=== PATIENT | female | born 1935 | race Caucasian/White ===

== ENCOUNTER → 2016-12-08 | Outpatient (CLI) | payer MEDICARE, BC ==
[2016-12-08 09:35] LABS: HEMATOCRIT 39.3 % (36.0-47.0); HEMOGLOBIN 13.2 g/dL (12.0-15.5); HGB HCT DIFFERENCE 0.3; MEAN CORPUSCULAR HEMOGLOBIN 29.6 pg (27.0-33.4); MEAN CORPUSCULAR HGB CONC 33.6 g/dL (32.0-36.0); MEAN CORPUSCULAR VOLUME 88 fl (80-97); RED BLOOD COUNT 4.47 10^6/uL (3.72-5.28); RED CELL DISTRIBUTION WIDTH 14.5 % (11.5-14.0); WHITE BLOOD COUNT 3.2 10^3/uL (4.0-10.5)
[2016-12-08 09:40] LABS: APPEARANCE,URINE SLIGHTLY-CLOUDY; BILIRUBIN,URINE NEGATIVE (NEGATIVE); GLUCOSE, URINE NEGATIVE (NEGATIVE); KETONES,URINE NEGATIVE (NEGATIVE); LEUKOCYTE ESTERASE,URINE LARGE (NEGATIVE); NITRITE,URINE POSITIVE (NEGATIVE); PROTEIN,URINE NEGATIVE (NEGATIVE); URINE SPECIFIC GRAVITY 1.017; UROBILINOGEN,URINE NEGATIVE mg/dL (<2.0)
[2016-12-08 10:04] LABS: ANION GAP 13 (5-19); BLOOD UREA NITROGEN 26 mg/dL (7-20); CALCIUM 9.5 mg/dL (8.4-10.2); CARBON DIOXIDE 24 mmol/L (22-30); CHLORIDE 107 mmol/L (98-107); CREATININE RESULT 0.97 mg/dL (0.52-1.25); GLUCOSE 107 mg/dL (75-110); POTASSIUM 4.1 mmol/L (3.6-5.0); SODIUM 144.1 mmol/L (137-145)
== END ==
LOC: OD 08:21
PROVIDERS: ATTEND Internal Medicine Nephrology
DX: E11.22 Type 2 diabetes mellitus with diabetic chronic kidney disease (principal); I12.9 Hypertensive chronic kidney disease with stage 1 through stage 4 chronic kidney disease, or unspecified chronic kidney disease; N18.2 Chronic kidney disease, stage 2 (mild)
CPT/HCPCS: 36415; 80048; 81001; 85027

== ENCOUNTER → 2017-05-16 | Outpatient (CLI) | payer MEDICARE, BC ==
--- NOTE | 2017-05-16 16:45 | RADIOLOGY REPORT (SQ) ---
EXAM DESCRIPTION: HAND RIGHT 3 VIEWS COMPLETED DATE/TIME: 05/16/2017 3:01 pm REASON FOR STUDY: CELLULITIS OF RIGHT UPPER LIMB L03.113 CELLULITIS OF RIGHT UPPER LIMB COMPARISON: None. EXAM PARAMETERS: NUMBER OF VIEWS: Three views. TECHNIQUE: AP, lateral and oblique radiographic images acquired of the right hand. LIMITATIONS: None. FINDINGS: MINERALIZATION: Osteopenia. BONES: No acute fracture or dislocation. No worrisome bone lesions. JOINTS: No effusions. SOFT TISSUES: No soft tissue swelling. No foreign body. OTHER: No other significant finding. IMPRESSION: NEGATIVE STUDY OF THE RIGHT HAND. NO RADIOGRAPHIC EVIDENCE OF ACUTE INJURY. TECHNICAL DOCUMENTATION: JOB ID: [id number] [employer]- All Rights Reserved
== END ==
LOC: OD 14:41
PROVIDERS: ATTEND Family Medicine
DX: L03.113 Cellulitis of right upper limb (principal)

== ENCOUNTER 2017-06-12 19:00 | Emergency (ER) | payer MEDICARE, BC ==
--- NOTE | 2017-06-12 19:41 | ER Document Report ---
ED Medical Screen (RME) - General Chief Complaint: Urinary Problem Stated Complaint: URINATING ISSUES Time Seen by Provider: 06/12/17 19:38 Mode of Arrival: Ambulatory Information source: Patient Notes: 82-year-old female presents with complaints of sudden blood either in her urine or from her vagina. Patient denies any pain at all denies any previous similar episodes I have greeted and performed a rapid initial assessment of this patient. A comprehensive ED assessment and evaluation of the patient, analysis of test results and completion of the medical decision making process will be conducted by additional ED providers. PHYSICAL EXAMINATION: GENERAL: Well-appearing, well-nourished and in no acute distress. HEAD: Atraumatic, normocephalic. EYES: Pupils equal round extraocular movements intact, conjunctiva are normal. ENT: Nares patent NECK: Normal range of motion LUNGS: No respiratory distress Musculoskeletal: Normal range of motion NEUROLOGICAL: Normal speech, normal gait. PSYCH: Normal mood, normal affect. SKIN: Warm, Dry, normal turgor, no rashes or lesions noted. TRAVEL OUTSIDE OF THE [place] IN LAST 30 DAYS: No - Related Data Allergies/Adverse Reactions: No Known Drug Allergies Allergy (Verified 06/12/17 19:02) Past Medical History - Past Medical History Cardiac Medical History: Reports: Hx Hypercholesterolemia, Hx Hypertension Denies: Hx Atrial Fibrillation, Hx Congestive Heart Failure, Hx Coronary Artery Disease, Hx Heart Attack, Hx Peripheral Vascular Disease, Hx Pulmonary Embolism, Hx Heart Murmur Pulmonary Medical History: Reports: Hx Asthma - as child, Hx Bronchitis Denies: Hx COPD, Hx Pneumonia, Hx Respiratory Failure, Hx Sleep Apnea, Hx Tuberculosis Neurological Medical History: Reports: Hx Cerebrovascular Accident - 2004,2007 approx.. Denies: Hx Seizures Endocrine Medical History: Reports: Hx Hypothyroidism. Denies: Hx Graves' Disease, Hx Hyperthyroidism Renal/ Medical History: Reports: Hx Kidney Stones - 1959's. Denies: Hx End Stage Renal Disease, Hx Peritoneal Dialysis Malignancy Medical History: Denies: Hx Lung Cancer GI Medical History: Denies: Hx Crohn's Disease, Hx Gastroesophageal Reflux Disease, Hx Hiatal Hernia, Hx Irritable Bowel, Hx Liver Failure, Hx Pancreatitis , Hx Ulcer Musculoskeltal Medical History: Reports Hx Arthritis, Denies Hx Fibromyalgia, Denies Hx Multiple Sclerosis, Denies Hx Muscular Dystrophy Psychiatric Medical History: Denies: Hx Dementia - some memory loss with age Traumatic Medical History: Reports: Hx Fractures - left wrist fracture 1996 Past Surgical History: Reports: Hx Tubal Ligation. Denies: Hx Appendectomy, Hx Bowel Surgery, Hx Section, Hx Cholecystectomy, Hx Colostomy, Hx Coronary Artery Bypass Graft, Hx Gastric Bypass Surgery, Hx Herniorrhaphy, Hx Hysterectomy, Hx Mastectomy, Hx Pacemaker, Hx Tonsillectomy - Immunizations Immunizations up to date: Yes Hx Diphtheria, Pertussis, Tetanus Vaccination: Yes Physical Exam - Vital signs Vitals: Temp Pulse Resp BP Pulse Ox 98.0 F 92 18 168/67 H 93 06/12/17 19:10 06/12/17 19:10 06/12/17 19:10 06/12/17 19:10 06/12/17 19:10 Course - Vital Signs Vital signs: Temp Pulse Resp BP Pulse Ox 98.0 F 92 18 168/67 H 93 06/12/17 19:10 06/12/17 19:10 06/12/17 19:10 06/12/17 19:10 06/12/17 19:10
[2017-06-12] MEDS ORDERED: NORMAL SALINE 1000 ML 1,000 ML IV PRN (20:09)
--- NOTE | 2017-06-12 20:11 | ER Document Report ---
ED GI/ - General Chief Complaint: Urinary Problem Stated Complaint: URINATING ISSUES Time Seen by Provider: 06/12/17 19:38 Mode of Arrival: Ambulatory Information source: Patient Notes: 82 years old pleasant female presents today with an episode of seeing blood after voiding. After voiding she wiped at that area and noted some blood but she is not sure what where it was coming from. She has no dysuria frequency urgency. Denies any abdominal pain denies any rectal bleed. Denies any malaise weakness. Denies any other constitutional symptoms. TRAVEL OUTSIDE OF THE [place] IN LAST 30 DAYS: No - Related Data Allergies/Adverse Reactions: No Known Drug Allergies Allergy (Verified 06/12/17 19:02) Past Medical History - General Information source: Patient - Social History Smoking Status: Never Smoker Frequency of alcohol use: None Drug Abuse: None Family History: Reviewed & Not Pertinent Patient has suicidal ideation: No Patient has homicidal ideation: No - Past Medical History Cardiac Medical History: Reports: Hx Hypercholesterolemia, Hx Hypertension Denies: Hx Atrial Fibrillation, Hx Congestive Heart Failure, Hx Coronary Artery Disease, Hx Heart Attack, Hx Peripheral Vascular Disease, Hx Pulmonary Embolism, Hx Heart Murmur Pulmonary Medical History: Reports: Hx Asthma - as child, Hx Bronchitis Denies: Hx COPD, Hx Pneumonia, Hx Respiratory Failure, Hx Sleep Apnea, Hx Tuberculosis Neurological Medical History: Reports: Hx Cerebrovascular Accident - 2004,2007 approx.. Denies: Hx Seizures Endocrine Medical History: Reports: Hx Hypothyroidism. Denies: Hx Graves' Disease, Hx Hyperthyroidism Renal/ Medical History: Reports: Hx Kidney Stones - 1959's. Denies: Hx End Stage Renal Disease, Hx Peritoneal Dialysis Malignancy Medical History: Denies: Hx Lung Cancer GI Medical History: Denies: Hx Crohn's Disease, Hx Gastroesophageal Reflux Disease, Hx Hiatal Hernia, Hx Irritable Bowel, Hx Liver Failure, Hx Pancreatitis , Hx Ulcer Musculoskeltal Medical History: Reports Hx Arthritis, Denies Hx Fibromyalgia, Denies Hx Multiple Sclerosis, Denies Hx Muscular Dystrophy Psychiatric Medical History: Denies: Hx Dementia - some memory loss with age Traumatic Medical History: Reports: Hx Fractures - left wrist fracture 1996 Past Surgical History: Reports: Hx Tubal Ligation. Denies: Hx Appendectomy, Hx Bowel Surgery, Hx Section, Hx Cholecystectomy, Hx Colostomy, Hx Coronary Artery Bypass Graft, Hx Gastric Bypass Surgery, Hx Herniorrhaphy, Hx Hysterectomy, Hx Mastectomy, Hx Pacemaker, Hx Tonsillectomy - Immunizations Immunizations up to date: Yes Hx Diphtheria, Pertussis, Tetanus Vaccination: Yes Hx Pneumococcal Vaccination: 02/07/14 Review of Systems - Review of Systems Notes: REVIEW OF SYSTEMS: CONSTITUTIONAL : Denies fever, chills, or sweats. Denies recent illness. EENT: Denies eye, ear, throat, or mouth pain or symptoms. Denies nasal or sinus congestion or discharge. Denies throat, tongue, or mouth swelling or difficulty swallowing. CARDIOVASCULAR: Denies chest pain. Denies palpitations or racing or irregular heart beat. Denies ankle edema. RESPIRATORY: Denies cough, cold, or chest congestion. Denies shortness of breath, difficulty breathing, or wheezing. GASTROINTESTINAL: Denies abdominal pain or distention. Denies nausea, vomiting , or diarrhea. Denies blood in vomitus, stools, or per rectum. Denies black, tarry stools. Denies constipation. GENITOURINARY: Denies difficulty urinating, painful urination, burning, frequency, blood in urine, or discharge. FEMALE GENITOURINARY: Denies vaginal bleeding, heavy or abnormal periods, irregular periods. Denies vaginal discharge or odor. MUSCULOSKELETAL: Denies back or neck pain or stiffness. Denies joint pain or swelling. SKIN: Denies rash, lesions or sores. HEMATOLOGIC : Denies easy bruising or bleeding. LYMPHATIC: Denies swollen, enlarged glands. NEUROLOGICAL: Denies confusion or altered mental status. Denies passing out or loss of consciousness. Denies dizziness or lightheadedness. Denies headache. Denies weakness or paralysis or loss of use of either side. Denies problems with gait or speech. Denies sensory loss, numbness, or tingling. Denies seizures. PSYCHIATRIC: Denies anxiety or stress. Denies depression, suicidal ideation, or homicidal ideation. ALL OTHER SYSTEMS REVIEWED AND NEGATIVE. PHYSICAL EXAMINATION: GENERAL: Well-appearing, well-nourished and in no acute distress. HEAD: Atraumatic, normocephalic. EYES: Pupils equal round and reactive to light, extraocular movements intact, conjunctiva are normal. ENT: Nares patent, oropharynx clear without exudates. Moist mucous membranes. NECK: Normal range of motion, supple without lymphadenopathy LUNGS: Breath sounds clear to auscultation bilaterally and equal. No wheezes rales or rhonchi. HEART: Regular rate and rhythm without murmurs ABDOMEN: Soft, nontender, nondistended abdomen. No guarding, no rebound. No masses appreciated. Female : deferred Musculoskeletal: Normal range of motion, no pitting or edema. No cyanosis. NEUROLOGICAL: Cranial nerves grossly intact. Normal speech, normal gait. Normal sensory, motor exams PSYCH: Normal mood, normal affect. SKIN: Warm, Dry, normal turgor, no rashes or lesions noted. Dictation was performed using [employer] voice recognition software Physical Exam - Vital signs Vitals: Temp Pulse Resp BP Pulse Ox 98.0 F 92 18 168/67 H 93 06/12/17 19:10 06/12/17 19:10 06/12/17 19:10 06/12/17 19:10 06/12/17 19:10 Course - Re-evaluation Re-evalutation: 06/12/17 22:25 Patient was informed of the results, and possible UTI. - Vital Signs Vital signs: Temp Pulse Resp BP Pulse Ox 98.0 F 92 18 168/67 H 93 06/12/17 19:10 06/12/17 19:10 06/12/17 19:10 06/12/17 19:10 06/12/17 19:10 - Laboratory Result Diagrams: 06/12/17 21:15 06/12/17 21:15 Laboratory results interpreted by me: 06/12/17 06/12/17 06/12/17 19:58 21:15 21:15 WBC 3.8 L RDW 14.3 H Plt Count 47 L Est GFR (Non-Af Amer) 51 L Urine Blood SMALL H Urine Urobilinogen 2.0 H Ur Leukocyte Esterase SMALL H - Diagnostic Test Radiology reviewed: Reports reviewed - CT reported by radiologist reviewed no significant finding Discharge - Discharge Clinical Impression: Hematuria Qualifiers: Hematuria type: gross Qualified Code(s): R31.0 - Gross hematuria UTI (urinary tract infection) Qualifiers: Urinary tract infection type: acute cystitis Hematuria presence: with hematuria Qualified Code(s): N30.01 - Acute cystitis with hematuria Condition: Fair Disposition: HOME, SELF-CARE Instructions: Urinary Tract Infection ([facility]), Trimethoprim-Sulfa ([facility]) Prescriptions: Sulfamethoxazole/Trimethoprim [Bactrim Ds Tablet] 1 each PO BID #10 tablet
--- NOTE | 2017-06-12 20:19 | RADIOLOGY REPORT (SQ) ---
EXAM DESCRIPTION: CT LTD RENAL STONE PROTOCOL ON COMPLETED DATE/TIME: 06/12/2017 8:08 pm REASON FOR STUDY: hematuria COMPARISON: 02/28/2012 and 09/06/2008. TECHNIQUE: CT scan of the abdomen and pelvis performed without intravenous or oral contrast. Images reviewed with lung, soft tissue, and bone windows. Reconstructed coronal and sagittal MPR images revi ewed. All images stored on PACS. All CT scanners at this facility use dose modulation, iterative reconstruction, and/or weight based d osing when appropriate to reduce radiation dose to as low as reasonably achievable (ALARA). [facility]: Dose Right [facility]: CareDose [facility]: Dose Right [facility]: Teradose 4D [facility]: Smart [employer] RADIATION DOSE: CT Rad equipment meets quality standard of care and radiation dose reduction techniq ues were employed. CTDIvol: 8.9 mGy. DLP: 479 mGy-cm.mGy. LIMITATIONS: None. FINDINGS: LOWER CHEST: No significant findings. No nodules or infiltrates. NON-CONTRASTED LIVER, SPLEEN, ADRENALS: Evaluation limited by lack of IV contrast. Stable splenomega ly, measuring 18 cm. No identified significant masses. PANCREAS: No masses. No peripancreatic inflammatory changes. GALLBLADDER: No identified stones by CT criteria. No inflammatory changes to suggest cholecystitis. RIGHT KIDNEY AND URETER: No suspicious masses. Assessment limited by lack of IV contrast. No signif icant calcifications. No hydronephrosis or hydroureter. LEFT KIDNEY AND URETER: No suspicious masses. Assessment limited by lack of IV contrast. No signifi cant calcifications. No hydronephrosis or hydroureter. AORTA AND RETROPERITONEUM: No aneurysm. No retroperitoneal masses or adenopathy. BOWEL AND PERITONEAL CAVITY: No obvious masses or inflammatory changes. No free fluid. APPENDIX: Not visualized. PELVIS, BLADDER, AND ABDOMINAL WALL:No abnormal masses. No free fluid. Bladder normal. BONES: Degenerative changes in the spine with marked scoliosis. Hardware in the right hip. Old righ t and left inferior pubic ramus fractures. OTHER: No other significant finding. IMPRESSION: STABLE SPLENOMEGALY, PRESENT ON PRIOR STUDIES WELL. 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 NO OTHER SIGNIFICANT OR ACUTE PROCESS IN THE ABDOMEN OR PELVIS. COMMENT: Quality ID # [id number]: Final reports with documentation of one or more dose reduction techniques (e.g., Automated exposure control, adjustment of the mA and/or kV according to patient size, use of iterative reconstruction technique) TECHNICAL DOCUMENTATION: JOB ID: [id number] [employer]- All Rights Reserved
[2017-06-12 20:22] LABS: APPEARANCE,URINE CLEAR; BILIRUBIN,URINE NEGATIVE (NEGATIVE); GLUCOSE, URINE NEGATIVE (NEGATIVE); KETONES,URINE NEGATIVE (NEGATIVE); LEUKOCYTE ESTERASE,URINE SMALL (NEGATIVE); NITRITE,URINE NEGATIVE (NEGATIVE); PROTEIN,URINE NEGATIVE (NEGATIVE); URINE SPECIFIC GRAVITY 1.014
[2017-06-12 21:39] LABS: ABSOLUTE EOSINOPHILS # (AUTO) 0.1 10^3/uL (0.0-0.6); ABSOLUTE LYMPHOCYTES (AUTO) 0.6 10^3/uL (0.5-4.7); ABSOLUTE MONOCYTES (AUTO) 0.2 10^3/uL (0.1-1.4); ABSOLUTE NEUT (AUTO) 2.9 10^3/uL (1.7-8.2); BASOPHILS % (AUTO) 0.7 % (0-2); EOSINOPHILS % (AUTO) 1.4 % (0-6); HEMATOCRIT 39.2 % (36.0-47.0); HEMOGLOBIN 13.4 g/dL (12.0-15.5); LYMPHOCYTES % (AUTO) 15.4 % (13-45); MEAN CORPUSCULAR HEMOGLOBIN 28.7 pg (27.0-33.4); MEAN CORPUSCULAR HGB CONC 34.2 g/dL (32.0-36.0); MEAN CORPUSCULAR VOLUME 84 fl (80-97); MONOCYTES % (AUTO) 4.7 % (3-13); RED BLOOD COUNT 4.68 10^6/uL (3.72-5.28); RED CELL DISTRIBUTION WIDTH 14.3 % (11.5-14.0); SEGMENTED NEUTROPHILS % (AUTO) 77.8 % (42-78); WHITE BLOOD COUNT 3.8 10^3/uL (4.0-10.5)
[2017-06-12 21:49] LABS: ALANINE AMINOTRANSFERASE 31 U/L (9-52); ALBUMIN 4.3 g/dL (3.5-5.0); ALKALINE PHOSPHATASE 71 U/L (38-126); ANION GAP 11 (5-19); ASPARTATE AMINO TRANSFERASE 32 U/L (14-36); BILIRUBIN,DIRECT 0.3 mg/dL (0.0-0.4); BILIRUBIN,TOTAL 0.7 mg/dL (0.2-1.3); BLOOD UREA NITROGEN 19 mg/dL (7-20); CALCIUM 9.8 mg/dL (8.4-10.2); CARBON DIOXIDE 28 mmol/L (22-30); CHLORIDE 105 mmol/L (98-107); CREATININE RESULT 1.03 mg/dL (0.52-1.25); GLUCOSE 110 mg/dL (75-110); POTASSIUM 3.6 mmol/L (3.6-5.0); TOTAL PROTEIN 6.8 g/dL (6.3-8.2)
[2017-06-12] MEDS ORDERED: SULFAMETHOXAZOLE/TRIMETHOPRIM 800-160 MG TABLET PO ONE (22:27)
[2017-06-12 22:47] VITALS: BP 151/71
== END 2017-06-12 22:47 | disposition home or self-care (01) ==
LOC: ER 19:00
DX: N30.01 Acute cystitis with hematuria (principal); R31.0 Gross hematuria; R39.198 Other difficulties with micturition
CPT/HCPCS: 99283; 96360; 36415; 85025; 80053; 81001; 76380; A9270; J7030

== ENCOUNTER 2017-08-23 05:46 | Day surgery (SDC) | payer MEDICARE, BC ==
[2017-08-11 10:36] LABS: HEMATOCRIT 38.2 % (36.0-47.0); HEMOGLOBIN 13.1 g/dL (12.0-15.5); INTERNATIONAL RATION (INR) 1.07; MEAN CORPUSCULAR HGB CONC 34.3 g/dL (32.0-36.0); MEAN CORPUSCULAR VOLUME 85 fl (80-97); PROTHROMBIN TIME 14.6 SEC (11.4-15.4); RED BLOOD COUNT 4.51 10^6/uL (3.72-5.28); RED CELL DISTRIBUTION WIDTH 14.9 % (11.5-14.0); WHITE BLOOD COUNT 3.4 10^3/uL (4.0-10.5)
[2017-08-11 10:37] LABS: PARTIAL THROMBOPLASTIN TIME 38.3 SEC (23.5-35.8)
[2017-08-11 11:02] LABS: ANION GAP 12 (5-19); BLOOD UREA NITROGEN 23 mg/dL (7-20); CALCIUM 9.7 mg/dL (8.4-10.2); CARBON DIOXIDE 26 mmol/L (22-30); CHLORIDE 106 mmol/L (98-107); GLUCOSE 112 mg/dL (75-110); SODIUM 144.4 mmol/L (137-145)
[2017-08-11 11:22] LABS: PLATELET COUNT 49 10^3/uL (150-450)
--- NOTE | 2017-08-11 13:24 | EKG REPORT ---
SEVERITY:- NORMAL ECG - SINUS RHYTHM : Confirmed by: Derrek Bailey MD 11-Aug-2017 13:22:40
[~2017-08-23 05:46] MED LIST: CEFAZOLIN 1 GM/D5W RTU 1 GM/50 ML RTUPB IV SCH; LACTATED RINGERS 1000 ML IV PRN; LIDOCAINE 0.5% INJ-PF (5 MG/ML) 50 ML SDV SUBCUT PRN
[2017-08-23] MEDS ORDERED: POVIDONE-IODINE 5% OPH PREP SOLN 30 ML ONE (06:13)
[2017-08-23] MEDS ORDERED: SODIUM BICARBONATE 8.4% INJ 50 MEQ/50 ML DISP.SYRIN ONE (06:14)
[2017-08-23] MEDS ORDERED: LIDOCAINE 1%/EPINEPHRINE INJ 20 ML VIAL ONE (06:14)
[2017-08-23] MEDS ORDERED: LIDOCAINE 2% INJ-PF (20 MG/ML) 10 ML AMPUL ONE (07:16)
[2017-08-23] MEDS ORDERED: FENTANYL CITRATE INJ/PF 100 MCG/2 ML AMPUL ONE (07:16)
[2017-08-23] MEDS ORDERED: MIDAZOLAM 2 MG/2 ML INJ ONE (07:17)
[2017-08-23] MEDS ORDERED: PROPOFOL INJ 200 MG/20 ML VIAL IV ONE (07:17)
[2017-08-23] MEDS ORDERED: DIPHENHYDRAMINE HCL 50 MG/ML VIAL IV PRN (08:29)
[2017-08-23] MEDS ORDERED: PROMETHAZINE HCL INJ 25 MG/1 ML VIAL IV PRN (08:29)
[2017-08-23] MEDS ORDERED: ONDANSETRON HCL INJ/PF 4 MG/2 ML SDV IV PRN (08:29)
[2017-08-23] MEDS ORDERED: FENTANYL CITRATE INJ/PF 100 MCG/2 ML AMPUL IV PRN ×3 (08:29)
--- NOTE | 2017-08-23 10:33 | Operative Report ---
Operative Report DATE OF SURGERY: 08/23/17 PREOPERATIVE DIAGNOSIS: Suspected basal cell carcinoma of the right ala of the nose POSTOPERATIVE DIAGNOSIS: Basal cell carcinoma of the right ala of the nose OPERATION: Excision of basal cell carcinoma of the right ala of nose with frozen section margin control and reconstruction with a full-thickness graft taken from the right clavicular area SURGEON: MOUNIKA CALHOUN ANESTHESIA: LMAC TISSUE REMOVED OR ALTERED: Basal cell carcinoma COMPLICATIONS: None ESTIMATED BLOOD LOSS: Minimal PROCEDURE: The patient was brought into the operating room. The patient was laid on the operating room table in a supine position. The patient was prepped and draped in a sterile and aseptic fashion. After a timeout we then went ahead and marked the area right ala of the nose to be resected. The 12:00 margin was towards the tip of the nose. The 3:00 margin was towards the upper lip. The 6:00 margin was towards the alar base. The 9:00 margin was towards the medial canthus. Then went ahead and anesthetize the area with 1% lidocaine with epinephrine. Then went ahead and excise the area. Stitch was placed at 12:00 and it was sent for frozen section. Frozen section results came back that the deep and lateral margins were clear. We irrigated the wound with Betadine sterile water to lyse any remaining cancer cells. We then went ahead and decided that because of the size of the defect we will proceed with a skin graft. This was the best option for this patient otherwise a nasolabial fold flap would be needed and this would distort the nose even more. This was a rather large basal cell carcinoma which did extend past the groove of the ala along the base of the ala and we had to split the rim of the ala and nostril sill in order to resect this and had a clear margin. Decided to harvest the graft from the right clavicular area. We then went ahead and harvest the full-thickness graft. We closed the area with 4-0 Vicryl sutures and the skin was then closed with 4- 0 PDS with knots being tied on the outside and a support stitch in the center. At the end of the case tincture of benzoin and Steri-Strips were applied with a light pressure dressing. Graft was then defatted to the appropriate size and placed into the area of defect. It was then sutured into place with 5-0 Prolene sutures leaving one end long. After all the sutures were placed we then went ahead and applied Xeroform. Then went ahead and created a bolus dressing and tied each suture 180 from each other. Then tied the sutures again to each other. Bacitracin was applied. 2 x 2's were applied and tincture benzoin and the dressing was taped into place. At the end of the case the patient was doing well and brought to the [facility] for recovery The approximate size of the lesion was 1.4 cm approximately. This dictation was performed using [employer] naturally speaking. If there are any inconsistencies please contact the dictating surgeon. Subjective: No complaints Objective: Vital signs stable afebrile No bleeding Dressing intact Assessment and plan: Doing well. Elevate the operative site. Resume medications. Take antibiotics for 1 day Follow-up Full instructions were given to the patient and family and they understand Portions of this note may be dictated using [employer] voice recognition software. Occasional variations and spelling and vocabulary could be possible and are unintentional. Additionally, there is a chance that some errors may not be caught or corrected. Please notify the offer of any discrepancies noted or if any statements are unclear.
--- NOTE | 2017-08-23 10:37 | Operative Report ---
Operative Report DATE OF SURGERY: 08/23/17 PREOPERATIVE DIAGNOSIS: Suspected basal cell carcinoma of the right ala of the nose POSTOPERATIVE DIAGNOSIS: Basal cell carcinoma of the right ala of the nose OPERATION: Excision of basal cell carcinoma of the right ala of nose with frozen section margin control and reconstruction with a full-thickness graft taken from the right clavicular area SURGEON: MOUNIKA CALHOUN ANESTHESIA: LMAC TISSUE REMOVED OR ALTERED: Basal cell carcinoma ESTIMATED BLOOD LOSS: Minimal
--- NOTE | 2017-08-23 10:44 | Discharge Summary ---
Discharge Summary (SDC) - Discharge Final Diagnosis: Basal cell carcinoma of the right alar Date of Surgery: 08/23/17 Condition: Good Treatment or Instructions: Antibiotics for 1 day, then discontinue. Elevate operative area to decrease swelling. Do not strain, or lift heavy objects. Call for excessive bleeding, increased temperature of 101, uncontrolled pain, or excessive nausea or vomiting. You may reach Dr. Mendez through his office at [phone]. In the event of an emergency after hours, then contact Dr. Mendez through [facility]. Return to the office for a postop check on . The time will be scheduled by the nursing staff of [facility] prior to discharge. Please give the patient a copy of their labs and EKG so they can bring this to their PMD. Thank you Portions of this note may be dictated using [employer] voice recognition software. Occasional variations and spelling and vocabulary could be possible and are unintentional. Additionally, there is a chance that some errors may not be caught or corrected. Please notify the offer of any discrepancies noted or if any statements are unclear. Referrals: ZITA SYED MD [Primary Care Provider] - Discharge Diet: As Tolerated Report the Following to Your Physician Immediately: Unusual Bleeding - Keep head elevated. No bending or straining. Do not touch the nose. Sneeze through the mouth. Keep nasal dressing stable.
[2017-08-23 12:17] VITALS: BP 150/66
== END 2017-08-23 12:18 | disposition home or self-care (01) ==
LOC: OROUT 05:46
PROVIDERS: ATTEND Plastic Surgery
PROC: 0HR1X73 Replacement of Face Skin with Autologous Tissue Substitute, Full Thickness, External Approach (ICD-10-PCS; principal; 2017-08-23 08:00)
DX: C44.391 Other specified malignant neoplasm of skin of nose (principal); E11.9 Type 2 diabetes mellitus without complications; M19.90 Unspecified osteoarthritis, unspecified site; J45.909 Unspecified asthma, uncomplicated; Z79.899 Other long term (current) drug therapy; Z79.84 Long term (current) use of oral hypoglycemic drugs; Z79.51 Long term (current) use of inhaled steroids; Z79.891 Long term (current) use of opiate analgesic; Z86.73 Personal history of transient ischemic attack (TIA), and cerebral infarction without residual deficits
CPT/HCPCS: 93005; 36415 ×2; 82962; 84132; 85027; 85610; 85730; 80048; 88305 ×2; 88331 ×2; 93010; 11642; 15260; J2250; J0690; J3010; J3490 ×4; J2704; 300

== ENCOUNTER → 2017-10-10 | Outpatient (CLI) | payer MEDICARE, BC ==
--- NOTE | 2017-10-10 16:37 | RADIOLOGY REPORT (SQ) ---
EXAM DESCRIPTION: HIPS BILATERAL COMPLETED DATE/TIME: 10/10/2017 3:17 pm REASON FOR STUDY: PAIN IN UNSPECIFIED HIP M25.559 PAIN IN UNSPECIFIED HIP M54.9 DORSALGIA, UNSPECI FIED COMPARISON: None. NUMBER OF VIEWS: Two views TECHNIQUE: AP pelvis and additional frog-leg view of both hips. LIMITATIONS: None. FINDINGS: Bones are osteopenic. There is a healed fracture of the right femoral neck status post ro d and hip compression screw fixation. There osteoarthritic changes in both hips, more advanced on th e right. SI joints are normal. IMPRESSION: Osteoarthritis. TECHNICAL DOCUMENTATION: JOB ID: [id number] [employer]- All Rights Reserved Reading location - IP/workstation name: [email or web address]
--- NOTE | 2017-10-10 16:39 | RADIOLOGY REPORT (SQ) ---
EXAM DESCRIPTION: LUMBAR SPINE COMPLETE COMPLETED DATE/TIME: 10/10/2017 3:17 pm REASON FOR STUDY: DORSALGIA, UNSPECIFIED M25.559 PAIN IN UNSPECIFIED HIP M54.9 DORSALGIA, UNSPECIF IED COMPARISON: None. NUMBER OF VIEWS: Five views including obliques. TECHNIQUE: AP, lateral, oblique, and sacral radiographic images acquired of the lumbar spine. LIMITATIONS: Osteopenia. FINDINGS: Bones are osteopenic. Mild height loss at several levels. No obvious acute compression f racture. There is a moderate -severe convex right scoliosis the level of L2-3. Multilevel spondylos is with vacuum disc at L2-3 and L3-4. IMPRESSION: Spondylosis, scoliosis and facet arthropathy. Osteopenia without obvious acute compress ion fracture. TECHNICAL DOCUMENTATION: JOB ID: [id number] [employer]- All Rights Reserved Reading location - IP/workstation name: [email or web address]
== END ==
LOC: OD 14:43
PROVIDERS: ATTEND Family Medicine
DX: M54.9 Dorsalgia, unspecified (principal); M47.896 Other spondylosis, lumbar region; M41.86 Other forms of scoliosis, lumbar region; M25.552 Pain in left hip; M25.551 Pain in right hip; M16.0 Bilateral primary osteoarthritis of hip
CPT/HCPCS: 72110; 73522

== ENCOUNTER → 2017-11-11 | Outpatient (CLI) | payer MEDICARE, BC ==
--- NOTE | 2017-11-11 11:18 | RADIOLOGY REPORT (SQ) ---
EXAM DESCRIPTION: CT HEAD WITHOUT COMPLETED DATE/TIME: 11/11/2017 10:36 am REASON FOR STUDY: WEAKNESS (R53.1) R53.1 WEAKNESS COMPARISON: 02/05/2014 TECHNIQUE: Axial images acquired through the brain without intravenous contrast. Images reviewed wi th bone, brain and subdural windows. Additional sagittal and coronal reconstructions were generated. Images stored on PACS. All CT scanners at this facility use dose modulation, iterative reconstruction, and/or weight based d osing when appropriate to reduce radiation dose to as low as reasonably achievable (ALARA). [facility]: Dose Right [facility]: CareDose [facility]: Dose Right [facility]: Teradose 4D [facility]: Smart [employer] ([employer]) RADIATION DOSE: CT Rad equipment meets quality standard of care and radiation dose reduction techniq ues were employed. CTDIvol: 48.5 mGy. DLP: 855 mGy-cm. mGy. LIMITATIONS: None. FINDINGS: VENTRICLES: Prominent ventricles secondary to involutional atrophy. CEREBRUM: Cortical atrophy. No masses. No hemorrhage. No midline shift. No evidence for acute in farction. Few scattered small areas of low density in the white matter most likely chronic small vess el ischemic changes. CEREBELLUM: No masses. No hemorrhage. No alteration of density. No evidence for acute infarction. EXTRAAXIAL SPACES: No fluid collections. No masses. ORBITS AND GLOBE: No intra- or extraconal masses. Normal contour of globe without masses. CALVARIUM: No fracture. PARANASAL SINUSES: No fluid or mucosal thickening. SOFT TISSUES: No mass or hematoma. OTHER: No other significant finding. IMPRESSION: CHRONIC MICROVASCULAR ISCHEMIA. NO ACUTE IMAGING FINDINGS IN THE BRAIN. EVIDENCE OF ACUTE STROKE: NO. COMMENT: Quality ID # [id number]: Final reports with documentation of one or more dose reduction techniques (e.g., Automated exposure control, adjustment of the mA and/or kV according to patient size, use of iterative reconstruction technique) TECHNICAL DOCUMENTATION: JOB ID: [id number] [employer]- All Rights Reserved Reading location - IP/workstation name: [email or web address]
== END ==
LOC: RAD 10:19
PROVIDERS: ATTEND Family Medicine
DX: I67.82 Cerebral ischemia (principal); R53.1 Weakness
CPT/HCPCS: 70450

== ENCOUNTER 2017-11-24 18:43 | Emergency (ER) | payer MEDICARE, BC ==
[2017-11-24] MEDS ORDERED: ACETAMINOPHEN 325 MG TABLET PO ONE (19:04)
--- NOTE | 2017-11-24 19:13 | ER Document Report ---
HPI - HPI Pain Level: 2 Notes: Patient is an 82-year-old female with a history of type 2 diabetes, dementia, and asthma who presents to the ED via EMS complaining of left-sided chest/rib pain status post fall prior to arrival. Patient states that she was getting something out of her lower covered cabinet when she stumbled backwards, landing on her buttocks. Patient states that the objects in her hand did fall on top of her, but were items that could be held in your hands. Patient states that 1 of the objects might have hit her on the top of the head, but she has not had any swelling nor any headache/pain. EMS stated her to a sitting position in a chair. Patient has been ambulatory since then without any difficulties. Spouse states that she is at baseline with her mentation and speech as well as her behavior. Throughout the day, the patient will have normal changes with her memory with not knowing where she is at. Patient states that she feels well aside from the left rib pain. She has been eating and drinking earlier without any difficulties. She has been having normal urinations and bowel movements as well. She is not on any blood thinners. No other concerns or complaints at this time. Denies any headache, fever, notable head injury, neck pain, changes in vision/speech/mentation/hearing, URI, sore throat, palpitations , syncope, cough, shortness of breath, wheeze, dyspnea, abdominal pain, nausea/ vomiting/diarrhea, urinary retention, dysuria, hematuria, back pain, loss of control of bowel or bladder, numbness/tingling, saddle anesthesia, muscle paralysis/weakness, or rash. - ROS Systems Reviewed and Negative: Yes All other systems reviewed and negative - REPRODUCTIVE Reproductive: DENIES: : Past Medical History - Social History Smoking Status: Never Smoker Family History: Reviewed & Not Pertinent - Past Medical History Cardiac Medical History: Reports: Hx Hypercholesterolemia, Hx Hypertension Denies: Hx Atrial Fibrillation, Hx Congestive Heart Failure, Hx Coronary Artery Disease, Hx Heart Attack, Hx Peripheral Vascular Disease, Hx Pulmonary Embolism, Hx Heart Murmur Pulmonary Medical History: Reports: Hx Asthma Denies: Hx Bronchitis, Hx COPD, Hx Pneumonia, Hx Respiratory Failure, Hx Sleep Apnea, Hx Tuberculosis Neurological Medical History: Denies: Hx Cerebrovascular Accident, Hx Seizures Endocrine Medical History: Reports: Hx Hypothyroidism. Denies: Hx Graves' Disease, Hx Hyperthyroidism Renal/ Medical History: Reports: Hx Kidney Stones - 1960's. Denies: Hx End Stage Renal Disease, Hx Peritoneal Dialysis Malignancy Medical History: Denies: Hx Lung Cancer GI Medical History: Denies: Hx Crohn's Disease, Hx Gastroesophageal Reflux Disease, Hx Hiatal Hernia, Hx Irritable Bowel, Hx Liver Failure, Hx Pancreatitis , Hx Ulcer Musculoskeltal Medical History: Reports Hx Arthritis, Denies Hx Fibromyalgia, Denies Hx Multiple Sclerosis, Denies Hx Muscular Dystrophy Psychiatric Medical History: Denies: Hx Dementia - some memory loss with age Traumatic Medical History: Reports: Hx Fractures - left wrist fracture 1996 Past Surgical History: Reports: Hx Tubal Ligation. Denies: Hx Appendectomy, Hx Bowel Surgery, Hx Section, Hx Cholecystectomy, Hx Colostomy, Hx Coronary Artery Bypass Graft, Hx Gastric Bypass Surgery, Hx Herniorrhaphy, Hx Hysterectomy, Hx Mastectomy, Hx Pacemaker, Hx Tonsillectomy - Immunizations Immunizations up to date: Yes Hx Diphtheria, Pertussis, Tetanus Vaccination: Yes - UNSURE WHEN Hx Pneumococcal Vaccination: 06/20/14 Vertical Provider Document - CONSTITUTIONAL Agree With Documented VS: Yes Notes: PHYSICAL EXAMINATION: accompanied by female nurse GENERAL: Well-appearing, well-nourished and in no acute distress. A&Ox4. Answers questions appropriately. HEAD: Atraumatic, normocephalic. Non-tender. No martins sign. no hematoma or bogginess. EYES: Pupils equal round and reactive to light, extraocular movements intact, sclera anicteric, conjunctiva are normal. No raccoon eyes/entrapment. No nystagmus. Vis chacon intact. ENT: EAC clear b/l. TM's intact b/l without erythema, fluid, or perforation. Nares patent and without discharge. oropharynx clear without exudates. No tonsilar hypertrophy or erythema. Moist mucous membranes. No sinus tenderness. No hemotympanum/CSF discharge. NECK: Normal range of motion, supple without lymphadenopathy. No rigidity. No midline tenderness. NEXUS negative. Chest: no ecchymosis. No flail chest. equal rise/fall. + tenderness to the left anteroinferior rib to palpation. LUNGS: Breath sounds clear to auscultation bilaterally and equal. No wheezes rales or rhonchi. HEART: Regular rate and rhythm without murmurs, rubs, gallops. ABDOMEN: Soft, nontender, nondistended abdomen. No guarding, no rebound. No masses appreciated. Normal bowel sounds present. No CVA tenderness bilaterally. No ecchymosis. Musculoskeletal: Ext b/l: FROM to passive/active. Strength 5+/5. No deficits noted. No bony tenderness of extremities. Back: FROM to passive/active. Strength 5+/5. No vertebral point tenderness, stepoffs, or deformities. No other bony tenderness or ecchymosis. Extremities: No cyanosis, clubbing, or edema b/l. Peripheral pulses 2+. Capillary refill less than 2 seconds. NEUROLOGICAL: NIH 0. GCS 15. Cranial nerves grossly intact. Normal speech, normal gait. Normal sensory, motor exams. Reflexes 2+ b/l. DIDIER's negative. Pronator drift negative. Heel/bill, finger/nose wnl. Rhomberg negative. PSYCH: Normal mood, normal affect. SKIN: Warm, Dry, normal turgor, no rashes or lesions noted. - INFECTION CONTROL TRAVEL OUTSIDE OF THE [place] IN LAST 30 DAYS: No Course - Re-evaluation Re-evalutation: 11/24/17 19:58 Patient is an afebrile, well-hydrated, 82-year-old female who presents to the ED with a left lower anterior chest wall/rib pain, suspect contusion. Vitals are acceptable. PE is otherwise unremarkable for any focal neurological deficits. X-ray of the chest and left ribs were unremarkable for any acute pathology. Patient has no significant tachycardia, tachypnea, or hypoxia. Patient states that overall her symptoms are improving. She is nontoxic- appearing. NIH 0, GCS 15, cranial nerves grossly intact, Nexus criteria negative, CT head Indonesian criteria negative. Patient is tolerating p.o. without difficulties. I did give her Tylenol p.o. No other labs or imaging warranted at this time based on H&P. Low suspicion for any acute intracranial hemorrhage, pneumothorax, dissection, respiratory compromise, severe dehydration , sepsis, meningitis, fractures, or other systemic emergent condition at this time. Patient and spouse are aware that her condition can change from initial presentation and she needs to monitor symptoms closely and seek medical attention for any acute changes. Recommend conservative measures for symptoms. Recheck with your PCM in 3-5 days or prn otherwise. Return to the ED with any worsening/concerning symptoms otherwise as reviewed in discharge. Patient is in agreement. - Vital Signs Vital signs: Temp Pulse Resp BP Pulse Ox 98.0 F 76 18 143/63 H 99 11/24/17 18:45 11/24/17 18:45 11/24/17 18:45 11/24/17 18:45 11/24/17 18:45 Discharge - Discharge Clinical Impression: Rib pain on left side Condition: Stable Disposition: HOME, SELF-CARE Instructions: Chest Wall Pain ([facility]), Rib Contusion ([facility]) Additional Instructions: Rest, Ice, Compression, Elevation Tylenol/ibuprofen as needed Light stretches daily Strength exercises as able Moist heat and massage may help F/u with your PCP in 3-5 days for a recheck Return to the ED with any worsening symptoms and/or development of fever, headache, changes in behavior/mentation/vision/speech, chest pain, palpitations , syncope, shortness of breath, trouble breathing, abdominal pain, n/v/d, blood in stool/urine, loss of control of bowel/bladder, urinary retention, muscle weakness/paralysis, saddle anesthesia, numbness/tingling, or other worsening symptoms that are concerning to you. Forms: Elevated Blood Pressure Referrals: ZITA SYED MD [Primary Care Provider] - Follow up in 3-5 days
--- NOTE | 2017-11-24 19:50 | RADIOLOGY REPORT (SQ) ---
EXAM DESCRIPTION: RIBS LEFT W/PA CHEST COMPLETED DATE/TIME: 11/24/2017 7:43 pm REASON FOR STUDY: pain s/p fall COMPARISON: 04/09/2015 TECHNIQUE: Frontal view of the chest and additional views of the left ribs acquired. NUMBER OF VIEWS: Three view. LIMITATIONS: None. FINDINGS: FRONTAL CXR: No pneumothorax. No pleural effusion. No atelectasis or infiltrates. RIBS: No displaced rib fractures. No lytic or blastic bony lesions. OTHER: No other significant finding. IMPRESSION: NO PNEUMOTHORAX. NO DISPLACED RIB FRACTURES. COMMENT: SITE OF TRAUMA/COMPLAINT MARKED/STAMP COMPLETED: NO. TECHNICAL DOCUMENTATION: JOB ID: [id number] [email or web address] All Rights Reserved Reading location - IP/workstation name: [email or web address]
[2017-11-24 20:48] VITALS: BP 125/48
== END 2017-11-24 20:44 | disposition home or self-care (01) ==
LOC: ER 18:43
DX: R07.81 Pleurodynia (principal); W19.XXXA Unspecified fall, initial encounter; F03.90 Unspecified dementia, unspecified severity, without behavioral disturbance, psychotic disturbance, mood disturbance, and anxiety; E11.9 Type 2 diabetes mellitus without complications; J45.909 Unspecified asthma, uncomplicated; I10 Essential (primary) hypertension
CPT/HCPCS: 99284; 71101; A9270

== ENCOUNTER 2018-07-05 19:04 | Emergency (ER) | payer MEDICARE, BC ==
--- NOTE | 2018-07-05 20:43 | ER Document Report ---
ED General - General Chief Complaint: Fall Injury Stated Complaint: SHOULDER PAIN Time Seen by Provider: 07/05/18 20:14 Notes: Patient is a 83-year-old female that presents to the emergency department for chief complaint of left shoulder, hip and knee pain after a fall. Patient states that shortly prior to ED arrival, she was going down the steps into the garage, and missed the last step, and fell onto her left side, into a cabinet freezer, injuring her left shoulder, hip and knee. She states mostly her pain is in the left shoulder and knee. She has a history of fracturing bones in the past, from falls, has a history of osteoporosis. She denies head injury, denies headache or neck pain at this time, denies any numbness, tingling or weakness in any of her extremities, no other complaints at this time. She currently rates her pain as a 6 out of 10, describes as a constant aching sensation, and the above-noted locations. She denies being on any blood thinners. Past Medical History: Osteoporosis, frequent falls Past Surgical History: ORIF, of the right hip, and left knee Social History: Denies tobacco, alcohol or drug use, lives at home with . Family History: Reviewed and noncontributory for presenting illness Allergies: Reviewed, see documented allergy list. REVIEW OF SYSTEMS: Other than noted above, the 12 point review of systems was reviewed with the patient and were negative, all pertinent findings are included in the HPI. PHYSICAL EXAMINATION: Vital signs reviewed, nursing noted reviewed. GENERAL: Elderly female, appears uncomfortable, and to be in pain. HEAD: Atraumatic, normocephalic. EYES: Eyes appear normal, extraocular movements intact, sclera anicteric, conjunctiva are normal. ENT: nares patent, oropharynx clear without exudates. Moist mucous membranes. NECK: Normal range of motion, supple without lymphadenopathy, no midline tenderness. LUNGS: Breath sounds clear to auscultation bilaterally and equal. No wheezes rales or rhonchi. HEART: Regular rate and rhythm without murmurs ABDOMEN: Soft, nontender, normoactive bowel sounds. No rebound, guarding, or rigidity. No masses appreciated. EXTREMITIES: Crease range of motion of the left shoulder joint, and all ranges of motion secondary to pain, she does have good range of motion with passive range of motion, but it is uncomfortable. The elbow is nontender, the wrists are nontender bilaterally, the right upper extremity is unremarkable. Left lower extremity, patient is able to flex the hip, without pain in the hip or groin, she does have tenderness to palpation over the left anterior lateral proximal tibia, no joint effusion appreciated over the knee, and she is able to flex the knee to 90 degrees. The rest of the patient's left lower extremity and right lower extremity exams are unremarkable. NEUROLOGICAL: No focal neurological deficits. Moves all extremities spontaneously Motor and sensory grossly intact on exam. PSYCH: Normal mood, normal affect. SKIN: Warm, Dry, normal turgor, no rashes or lesions noted on exposed skin TRAVEL OUTSIDE OF THE [place] IN LAST 30 DAYS: No - Related Data Allergies/Adverse Reactions: No Known Drug Allergies Allergy (Verified 11/24/17 18:58) Past Medical History - Social History Smoking Status: Never Smoker Chew tobacco use (# tins/day): No Frequency of alcohol use: None Drug Abuse: None Family History: Reviewed & Not Pertinent Patient has suicidal ideation: No Patient has homicidal ideation: No - Past Medical History Cardiac Medical History: Reports: Hx Hypercholesterolemia, Hx Hypertension Denies: Hx Atrial Fibrillation, Hx Congestive Heart Failure, Hx Coronary Artery Disease, Hx Heart Attack, Hx Peripheral Vascular Disease, Hx Pulmonary Embolism, Hx Heart Murmur Pulmonary Medical History: Reports: Hx Asthma Denies: Hx Bronchitis, Hx COPD, Hx Pneumonia, Hx Respiratory Failure, Hx Sleep Apnea, Hx Tuberculosis Neurological Medical History: Denies: Hx Cerebrovascular Accident, Hx Seizures Endocrine Medical History: Reports: Hx Hypothyroidism. Denies: Hx Graves' Disease, Hx Hyperthyroidism Renal/ Medical History: Reports: Hx Kidney Stones - 1960s. Denies: Hx End Stage Renal Disease, Hx Peritoneal Dialysis Malignancy Medical History: Denies: Hx Lung Cancer GI Medical History: Denies: Hx Crohn's Disease, Hx Gastroesophageal Reflux Disease, Hx Hiatal Hernia, Hx Irritable Bowel, Hx Liver Failure, Hx Pancreatitis, Hx Ulcer Musculoskeletal Medical History: Reports Hx Arthritis, Denies Hx Fibromyalgia, Denies Hx Multiple Sclerosis, Denies Hx Muscular Dystrophy Psychiatric Medical History: Denies: Hx Dementia - some memory loss with age Traumatic Medical History: Reports: Hx Fractures - left wrist fracture 1996 Past Surgical History: Reports: Hx Tubal Ligation. Denies: Hx Appendectomy, Hx Bowel Surgery, Hx Section, Hx Cholecystectomy, Hx Colostomy, Hx Coronary Artery Bypass Graft, Hx Gastric Bypass Surgery, Hx Herniorrhaphy, Hx Hysterectomy, Hx Mastectomy, Hx Pacemaker, Hx Tonsillectomy - Immunizations Immunizations up to date: Yes Hx Diphtheria, Pertussis, Tetanus Vaccination: Yes - UNSURE WHEN Hx Pneumococcal Vaccination: 06/20/14 Physical Exam - Vital signs Vitals: Temp Pulse Resp BP Pulse Ox 98.1 F 80 15 164/54 H 92 07/05/18 19:14 07/05/18 19:14 07/05/18 19:14 07/05/18 19:14 07/05/18 19:14 Course - Re-evaluation Re-evalutation: Patient seen and examined vital signs reviewed. imaging ordered as appropriate for the patient's presenting symptoms and complaint, with consideration of any critical or life threatening conditions that may be associated with their obtained history and exam as noted above. Patient was treated with IV fentanyl, and Zofran Results were reviewed when available and demonstrated proximal humerus fracture, without significant displacement, no dislocation, the x-rays of the hip and tibia were negative for acute fracture or bony injury. The patient was re-evaluated and was stable, was placed in a left arm sling, patient is right-hand dominant, discussed with her precautions, and follow-up with orthopedics, will discharge her home with a [facility] dispense pack, and a prescription for pain medication to take at home if needed Evaluation was most consistent with fall, with left proximal humerus fracture. Results were discussed with the patient at this point, after careful consideration I feel that that patient can be discharged from the emergency department, the patient was educated treatments and reasons to return to the emergency department based on their presumed diagnosis as noted above, they were advised to followup with a primary care physician in 2-3 days. Patient was agreeable to plan of care. *Note is created using voice recognition software and may contain spelling, syntax or grammatical errors. Hip X-Ray 07/05/18 20:17 IMPRESSION: No fracture. Shoulder X-Ray 07/05/18 20:17 IMPRESSION: Left proximal humerus surgical neck minimally displaced fracture. Tibia/Fibula X-Ray 07/05/18 20:49 IMPRESSION: No evidence for fracture. - Vital Signs Vital signs: Temp Pulse Resp BP Pulse Ox 98.3 F 86 20 156/61 H 94 07/05/18 23:39 07/05/18 23:39 07/05/18 23:39 07/05/18 23:39 07/05/18 23:39 Discharge - Discharge Clinical Impression: Closed right humeral fracture Qualifiers: Encounter type: initial encounter Humerus Location: proximal Fracture morphology: unspecified fracture morphology Qualified Code(s): S42.201A - Unspecified fracture of upper end of right humerus, initial encounter for closed fracture Fall Qualifiers: Encounter type: initial encounter Qualified Code(s): W19.XXXA - Unspecified fall, initial encounter Condition: Stable Disposition: HOME, SELF-CARE Instructions: Fracture Proximal Humerus Additional Instructions: Please wear the sling as much as possible, when you need to bathe, hold your arm down at her side, and try to move it very much. Please follow-up with orthopedic surgery, and take the pain medication as prescribed, to help with your pain at home. Please use a walker, or wheelchair to get around. Prescriptions: Hydrocodone/Acetaminophen [[facility]ide 5-325 Tablet] 1 each PO Q8H PRN #15 tablet PRN Reason: ARM PAIN Referrals: MAE ECHOLS MD [Primary Care Provider] - Follow up as needed FANNIE ENRIQUEZ MD [ACTIVE STAFF] - Follow up in 3-5 days
--- NOTE | 2018-07-05 20:46 | RADIOLOGY REPORT (SQ) ---
EXAM DESCRIPTION: XR HIP 2 OR MORE VIEWS COMPLETED DATE/TME: 07/05/2018 20:17 CLINICAL HISTORY: 83 years, Female, left hip pain, fall Findings: Bony alignment is anatomic. Right hip hardware is in place. Moderate bilateral hip degenerative changes. No fracture. IMPRESSION: No fracture.
--- NOTE | 2018-07-05 20:50 | RADIOLOGY REPORT (SQ) ---
EXAM DESCRIPTION: XR SHOULDER 2 OR MORE VIEWS COMPLETED DATE/TME: 07/05/2018 20:17 CLINICAL HISTORY: 83 years, Female, left shoulder pain, fall Findings: There is a minimally displaced fracture of the left proximal humerus surgical neck. The acromioclavicular joint is intact. Soft tissues are unremarkable. Bones are osteopenic. IMPRESSION: Left proximal humerus surgical neck minimally displaced fracture.
[2018-07-05] MEDS ORDERED: FENTANYL CITRATE INJ/PF 100 MCG/2 ML AMPUL IV ONE (21:33)
--- NOTE | 2018-07-05 21:35 | RADIOLOGY REPORT (SQ) ---
EXAM DESCRIPTION: XR TIBIA FIBULA 2 VIEWS COMPLETED DATE/TME: 07/05/2018 20:49 CLINICAL HISTORY: 83 years, Female, PROXIMAL TIBIA PAIN, INJURY Findings: Bones are osteopenic. No evidence for acute fracture. Medial compartmental arthroplasty is noted. Alignment is anatomic. IMPRESSION: No evidence for fracture.
[2018-07-05] MEDS ORDERED: HYDROMORPHONE HCL INJ/PF 2 MG/ML AMPULE IV ONE (22:33)
[2018-07-05] MEDS ORDERED: HYDROCODONE/ACETAMINOPHEN 5-325 MG (6 TAB/ER DISP) PO PRN (23:20)
[2018-07-05 23:59] VITALS: BP 156/61
== END 2018-07-05 23:39 | disposition home or self-care (01) ==
LOC: ER 19:04
DX: S42.212A Unspecified displaced fracture of surgical neck of left humerus, initial encounter for closed fracture (principal); M25.512 Pain in left shoulder; M25.552 Pain in left hip; M25.562 Pain in left knee; W10.8XXA Fall (on) (from) other stairs and steps, initial encounter; I10 Essential (primary) hypertension; J45.909 Unspecified asthma, uncomplicated
CPT/HCPCS: 99283; 96374; 96375; 73502; 73030; 73590; J3010; J1170; A9270

== ENCOUNTER 2018-07-13 23:13 | Inpatient (IN) | payer MEDICARE, BC ==
[2018-07-13 23:56] LABS: ABSOLUTE EOSINOPHILS # (AUTO) 0.1 10^3/uL (0.0-0.6); ABSOLUTE LYMPHOCYTES (AUTO) 0.6 10^3/uL (0.5-4.7); ABSOLUTE MONOCYTES (AUTO) 0.2 10^3/uL (0.1-1.4); ABSOLUTE NEUT (AUTO) 2.2 10^3/uL (1.7-8.2); BASOPHILS % (AUTO) 0.5 % (0-2); EOSINOPHILS % (AUTO) 2.4 % (0-6); HEMATOCRIT 27.9 % (36.0-47.0); HEMOGLOBIN 9.5 g/dL (12.0-15.5); LYMPHOCYTES % (AUTO) 18.3 % (13-45); MEAN CORPUSCULAR HGB CONC 34.1 g/dL (32.0-36.0); MEAN CORPUSCULAR VOLUME 88 fl (80-97); MONOCYTES % (AUTO) 6.3 % (3-13); RED BLOOD COUNT 3.17 10^6/uL (3.72-5.28); RED CELL DISTRIBUTION WIDTH 16.2 % (11.5-14.0); SEGMENTED NEUTROPHILS % (AUTO) 72.5 % (42-78); TOTAL CELLS COUNTED % (AUTO) 100 %; WHITE BLOOD COUNT 3.1 10^3/uL (4.0-10.5)
[2018-07-14] LABS: INTERNATIONAL RATION (INR) 1.08; PROTHROMBIN TIME 14.5 SEC (11.4-15.4)
[2018-07-14 00:01] LABS: PARTIAL THROMBOPLASTIN TIME 24.2 SEC (23.5-35.8)
[2018-07-14 00:05] LABS: ANION GAP 6 (5-19); BLOOD UREA NITROGEN 32 mg/dL (7-20); CALCIUM 8.2 mg/dL (8.4-10.2); CARBON DIOXIDE 26 mmol/L (22-30); CHLORIDE 106 mmol/L (98-107); GLUCOSE 119 mg/dL (75-110); POTASSIUM 4.7 mmol/L (3.6-5.0); SODIUM 137.5 mmol/L (137-145)
[2018-07-14 00:13] LABS: PLATELET COUNT 73 10^3/uL (150-450)
--- NOTE | 2018-07-14 01:23 | ER Document Report ---
ED General - General Chief Complaint: Rectal Bleeding Stated Complaint: RECTAL BLEEDING Time Seen by Provider: 07/13/18 23:21 Notes: Patient is an 83-year-old female with a past medical history of liver cirrhosis, splenomegaly, history of recurrent lower intestinal bleeding who presents complaining of rectal bleeding that started approximately 36 hours ago. The reports that the patient has had 4 bloody bowel movements since that ti me that are large volume. States it is bright red blood. States that after the last episode tonight he became very concerned, EMS was contacted to bring the patient to the emergency department. Patient does not take any form of a coagulation. Nothing seems to improve or worsen her symptoms. She denies any associated nausea, vomiting, hematemesis, lightheadedness or syncope. No chronic anemia. TRAVEL OUTSIDE OF THE [place] IN LAST 30 DAYS: No - Related Data Allergies/Adverse Reactions: No Known Drug Allergies Allergy (Verified 11/24/17 18:58) Past Medical History - General Information source: Patient - Social History Smoking Status: Never Smoker Chew tobacco use (# tins/day): No Frequency of alcohol use: None Drug Abuse: None Lives with: Spouse/Significant other Family History: Reviewed & Not Pertinent Patient has suicidal ideation: No Patient has homicidal ideation: No - Past Medical History Cardiac Medical History: Reports: Hx Hypercholesterolemia, Hx Hypertension Denies: Hx Atrial Fibrillation, Hx Congestive Heart Failure, Hx Coronary Artery Disease, Hx Heart Attack, Hx Peripheral Vascular Disease, Hx Pulmonary Embolism, Hx Heart Murmur Pulmonary Medical History: Reports: Hx Asthma Denies: Hx Bronchitis, Hx COPD, Hx Pneumonia, Hx Respiratory Failure, Hx Sle ep Apnea, Hx Tuberculosis Neurological Medical History: Denies: Hx Cerebrovascular Accident, Hx Seizures Endocrine Medical History: Reports: Hx Hypothyroidism. Denies: Hx Graves' Disease, Hx Hyperthyroidism Renal/ Medical History: Reports: Hx Kidney Stones - s. Denies: Hx End Stage Renal Disease, Hx Peritoneal Dialysis Malignancy Medical History: Denies: Hx Lung Cancer GI Medical History: Denies: Hx Crohn's Disease, Hx Gastroesophageal Reflux Disease, Hx Hiatal Hernia, Hx Irritable Bowel, Hx Liver Failure, Hx Pancreatitis, Hx Ulcer Musculoskeletal Medical History: Reports Hx Arthritis, Denies Hx Fibromyalgia, Denies Hx Multiple Sclerosis, Denies Hx Muscular Dystrophy Psychiatric Medical History: Denies: Hx Dementia - some memory loss with age Traumatic Medical History: Reports: Hx Fractures - left wrist fracture 1996 Past Surgical History: Reports: Hx Tubal Ligation. Denies: Hx Appendectomy, Hx Bowel Surgery, Hx Section, Hx Cholecystectomy, Hx Colostomy, Hx Coronary Artery Bypass Graft, Hx Gastric Bypass Surgery, Hx Herniorrhaphy, Hx Hysterectomy, Hx Mastectomy, Hx Pacemaker, Hx Tonsillectomy - Immunizations Immunizations up to date: Yes Hx Diphtheria, Pertussis, Tetanus Vaccination: Yes - UNSURE WHEN Hx Pneumococcal Vaccination: 06/20/14 Review of Systems - Review of Systems Notes: Constitutional: Negative for fever. HENT: Negative for sore throat. Eyes: Negative for visual changes. Cardiovascular: Negative for chest pain. Respiratory: Negative for shortness of breath. Gastrointestinal: Positive for rectal bleeding Genitourinary: Negative for dysuria. Musculoskeletal: Negative for back pain. Skin: Negative for rash. Neurological: Negative for headaches, weakness or numbness. 10 point ROS negative except as marked above and in HPI. Physical Exam - Vital signs Vitals: Temp Pulse Resp BP Pulse Ox 98.2 F 88 16 124/43 L 94 07/13/18 23:15 07/13/18 23:15 07/13/18 23:15 07/13/18 23:15 07/13/18 23:15 Interpretation: Normal Notes: PHYSICAL EXAMINATION: GENERAL: Somewhat frail elderly female in no acute distress HEAD: Atraumatic, normocephalic. EYES: Pupils equal round and reactive to light, extraocular movements intact, sclera anicteric, conjunctiva are normal. ENT: nares patent, oropharynx clear without exudates. Moist mucous membranes. NECK: Normal range of motion, supple without lymphadenopathy LUNGS: Breath sounds clear to auscultation bilaterally and equal. No wheezes rales or rhonchi. HEART: Regular rate and rhythm without murmurs ABDOMEN: Soft, nontender, normoactive bowel sounds. No guarding, no rebound. No masses appreciated. Rectal: Bright red blood on rectal examination, external hemorrhoids EXTREMITIES: Normal range of motion, no pitting or edema. No cyanosis. NEUROLOGICAL: No focal neurological deficits. Moves all extremities spontaneously and on command. PSYCH: Normal mood, normal affect. SKIN: Warm, Dry, normal turgor, no rashes or lesions noted. Course - Re-evaluation Re-evalutation: 07/14/18 01:21 Patient presents with acute hematochezia. Has been at bedside relates at least 4 episodes of large volume hematochezia in the last 36 hours. On rectal examination the patient does have gross bright red blood per rectum although with no brisk, active hemorrhage. Hemoglobin is noted to be low at 9.8, last check was 11.8 approximately 8 months ago. Patient does have extensive bruising from a fall approximately a week ago which could also contribute to her anemia. She does not take any form of medical regulation. I did discuss this case with the surgeon on-call who states that the surgical service will be happy to consult for colonoscopy. I did discuss with the hospitalist who has accepted the patient for admission. He has accepted her to a medical floor - Vital Signs Vital signs: Temp Pulse Resp BP Pulse Ox 98.3 F 88 18 115/43 L 97 07/14/18 04:00 07/13/18 23:15 07/14/18 01:01 07/14/18 01:00 07/14/18 01:01 - Laboratory Result Diagrams: 07/13/18 23:35 07/13/18 23:35 Laboratory results interpreted by me: 07/13/18 07/13/18 23:35 23:35 WBC 3.1 L RBC 3.17 L Hgb 9.5 L Hct 27.9 L RDW 16.2 H Plt Count 73 L BUN 32 H Est GFR (Non-Af Amer) 50 L Glucose 119 H Calcium 8.2 L Discharge - Discharge Clinical Impression: Hematochezia, Acute blood loss anemia Condition: Fair Disposition: ADMITTED INPATIENT Admitting Provider: Hospitalist Unit Admitted: Medical Floor
[2018-07-14] MEDS ORDERED: ONDANSETRON 4 MG TAB.RAPDIS PO PRN (01:38)
[2018-07-14] MEDS ORDERED: MAGNESIUM HYDROXIDE SUSP 30 ML UDCUP PO PRN (01:38)
[2018-07-14] MEDS ORDERED: ONDANSETRON HCL INJ/PF 4 MG/2 ML SDV IV PRN (01:38)
[2018-07-14] MEDS ORDERED: MAG HYDROX/AL HYDROX/SIMETH SUSP 30 ML UDCUP PO PRN (01:38)
[2018-07-14] MEDS ORDERED: ACETAMINOPHEN 325 MG TABLET PO PRN (01:56)
[2018-07-14] MEDS ORDERED: DEXTROSE 50%-WATER 25 GM/50 ML DISP.SYRIN IV PRN ×2 (01:56)
[2018-07-14] MEDS ORDERED: GLUCAGON,HUMAN RECOMB 1 MG INJ IM PRN (01:56)
[2018-07-14] MEDS ORDERED: DEXTROSE 40% GEL 15 GM TUBE PO PRN ×2 (01:56)
[2018-07-14] MEDS ORDERED: INSULIN REG, HUMAN 100 UNIT/ML 3 ML VIAL (PYX) SUBCUT PRN (01:56)
[2018-07-14] MEDS: NORMAL SALINE 1000 ML 1,000 ML IV PRN ×2 (03:55→18:24)
[2018-07-14] MEDS ORDERED: ALBUTEROL SULFATE 0.083% NEB 2.5 MG/3 ML AMPUL NEB ONE (05:00)
[2018-07-14] MEDS: LEVOTHYROXINE SODIUM 0.088 MG TABLET PO SCH (05:29)
--- NOTE | 2018-07-14 07:00 | PDOC H&P ---
History of Present Illness Admission Date/PCP: 07/14/18 01:37 MAE ECHOLS MD Patient complains of: Rectal bleeding History of Present Illness: CELI SARMIENTO is a 83 year old female who presents the emergency room with a 2-day history of hematochezia. She admits to having at least 4 episodes of stools accompanied with bright red blood, on and mixed with the stool, over the last 2 days. Her hematochezia has been painless and she has no accompanying sym ptoms specifically denying nausea, vomiting, diarrhea, abdominal pain, epistaxis, dysuria and hematuria. She has not experienced any recent unusual bruising or bleeding and has not been taking any anticoagulant medications or high doses of nonsteroidal anti-inflammatories. She admits numerous prior similar episodes of rectal bleeding in the recent and remote past, but has not identified any aggravating or ameliorating factors for her rectal bleeding. In the emergency room she was found to have a hemoglobin of 9.5 which was noted to be down significantly from a baseline several months ago. She was subsequently admitted to the hospital for further evaluation and treatment with a surgical c onsultation for acute colonoscopy having been made. Past Medical History Cardiac Medical History: Reports: Hyperlipidema, Hypertension Denies: Atrial Fibrillation, Congestive Heart Failure, Coronary Artery Disease, DVT, Myocardial Infarction, Peripheral Vascular Disease, Pulmonary Embolism, Heart Murmur Pulmonary Medical History: Reports: Asthma Denies: Bronchitis, Chronic Obstructive Pulmonary Disease (COPD), Pneumonia, Respiratory Failure, Sleep Apnea, Tuberculosis EENT Medical History: Reports: None Neurological Medical History: Reports: Other - mild memory loss Denies: Multiple Sclerosis, Seizures Endocrine Medical History: Reports: Diabetes Mellitus Type 2, Hypothyroidism Denies: Diabetes Mellitus Type 1, Hyperthyroidism Renal/ Medical History: Denies: Chronic Kidney Disease, Nephrolithiasis Malignancy Medical History: Reports: None GI Medical History: Reports: 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 Musculoskeltal Medical History: Reports: Arthritis Denies: Fibromyalgia, Gout Skin Medical History: Denies: Eczema, Psoriasis Psychiatric Medical History: Reports: Depression, General Anxiety Disorder Denies: Alcohol Dependency, Substance Abuse, Tobacco Dependency Traumatic Medical History: Reports: None Hematology: Denies: Anemia, Bleeding Tendencies Infectious Medical History: Reports: None Past Surgical History Past Surgical History: Reports: Orthopedic Surgery - Right hip fracture repair, Tubal Ligation, Other - Many previous endoscopies and colonoscopies for GI bleeding. Social History Information Source: Patient Lives with: Spouse/Significant other Smoking Status: Never Smoker Frequency of Alcohol Use: None Hx Recreational Drug Use: No Drugs: None Hx Prescription Drug Abuse: No - Advance Directive Resuscitation Status: Full Code Surrogate healthcare decision maker:: Family History Family History: DM, Hypertension Parental Family History Reviewed: Yes Children Family History Reviewed: No Sibling(s) Family History Reviewed.: Yes Medication/Allergy Home Medications: Amlodipine Besylate [Norvasc 5 mg Tablet] 5 mg PO DAILY 01/10/12 Triamterene/Hydrochlorothiazid [Triamterene-Hctz 37.5-25 mg Cp] 1 each PO DAILY 01/10/12 Sitagliptin Phosphate [Januvia 50 mg Tablet] 1 tab PO DAILY 02/01/14 Diazepam [Valium 5 mg Tablet] 5 mg PO DAILY PRN 01/27/15 Ezetimibe [Zetia 10 mg Tablet] 10 mg PO QHS 01/27/15 Furosemide 20 mg PO ASDIR PRN 08/11/17 Levothyroxine Sodium 88 mcg PO QAM 08/11/17 Meclizine HCl 25 mg PO Q8 PRN 08/11/17 Tramadol HCl 50 mg PO Q12 PRN 08/11/17 Hydrocodone/Acetaminophen [Dexter 5-325 Tablet] 1 each PO Q8H PRN #15 tablet 07/05/18 Allergies/Adverse Reactions: No Known Drug Allergies Allergy (Verified 11/24/17 18:58) Review of Systems Constitutional: ABSENT: chills, fever(s) Eyes: PRESENT: other - Ocular pain. ABSENT: visual disturbances Ears: ABSENT: hearing changes, other - Ear pain Nose, Mouth, and Throat: ABSENT: mouth pain, sore throat Cardiovascular: ABSENT: chest pain, dyspnea on exertion, edema, orthropnea, palpitations Respiratory: ABSENT: cough, dyspnea Gastrointestinal: PRESENT: hematochezia. ABSENT: abdominal pain, constipation, diarrhea, hematemesis, melena, nausea, vomiting Genitourinary: ABSENT: dysuria, hematuria Musculoskeletal: ABSENT: deformity, joint swelling Integumentary: ABSENT: pruritus, rash Neurological: PRESENT: memory loss. ABSENT: confusion, convulsions, tremor(s) Psychiatric: ABSENT: anxiety, depression Endocrine: ABSENT: cold intolerance, heat intolerance Hematologic/Lymphatic: ABSENT: easy bleeding, easy bruising Physical Exam Vital Signs: Temp Pulse Resp BP Pulse Ox 98.2 F 88 18 115/43 L 97 07/13/18 23:15 07/13/18 23:15 07/14/18 01:01 07/14/18 01:00 07/14/18 01:01 Intake & Output 07/12/18 07/13/18 07/14/18 23:59 23:59 23:59 Weight 71.2 kg General appearance: PRESENT: no acute distress, cooperative Head exam: PRESENT: atraumatic, normocephalic Eye exam: PRESENT: conjunctiva pink, EOMI. ABSENT: scleral icterus Ear exam: PRESENT: normal external ear exam. ABSENT: bleeding, drainage Mouth exam: PRESENT: dry mucosa, neck supple Neck exam: ABSENT: thyromegaly, tracheal deviation Respiratory exam: PRESENT: clear to auscultation roberto, symmetrical, unlabored Cardiovascular exam: PRESENT: RRR. ABSENT: clicks, gallop, rubs Pulses: PRESENT: normal radial pulses, normal dorsalis pedis pul Vascular exam: PRESENT: normal capillary refill. ABSENT: pallor GI/Abdominal exam: PRESENT: normal bowel sounds, soft. ABSENT: tenderness Rectal exam: PRESENT: deferred Extremities exam: ABSENT: joint swelling, pedal edema Musculoskeletal exam: ABSENT: deformity, dislocation Neurological exam: PRESENT: alert, oriented to person, oriented to place, oriented to time, oriented to situation, CN II-XII grossly intact. ABSENT: motor sensory deficit Psychiatric exam: PRESENT: appropriate affect, normal mood Skin exam: PRESENT: dry, intact, warm. ABSENT: jaundice, rash, urticaria Results Laboratory Results: 07/13/18 23:35 07/13/18 23:35 07/13/18 07/13/18 07/13/18 23:35 23:35 23:35 WBC 3.1 L RBC 3.17 L Hgb 9.5 L Hct 27.9 L MCV 88 MCH 30.0 MCHC 34.1 RDW 16.2 H Plt Count 73 L Seg Neutrophils % 72.5 Lymphocytes % 18.3 Monocytes % 6.3 Eosinophils % 2.4 Basophils % 0.5 Absolute Neutrophils 2.2 Absolute Lymphocytes 0.6 Absolute Monocytes 0.2 Absolute Eosinophils 0.1 Absolute Basophils 0.0 Sodium 137.5 Potassium 4.7 Chloride 106 Carbon Dioxide 26 Anion Gap 6 BUN 32 H Creatinine 1.05 Est GFR ( Amer) > 60 Est GFR (Non-Af Amer) 50 L Glucose 119 H Calcium 8.2 L Blood Type A NEGATIVE Antibody Screen NEGATIVE Assessment & Plan - Diagnosis (1) Hematochezia Is this a current diagnosis for this admission?: Yes Plan: Patient will have serial CBCs performed every 6 hours to evaluate her blood loss. She will receive transfusions as needed and will undergo a colonoscopy for evaluation of her rectal bleeding as soon as she has been stabilized and prepped. Surgical consultation for colonoscopy has been requested. (2) Acute blood loss anemia Is this a current diagnosis for this admission?: Yes Plan: Patient will have serial hemoglobins performed in the form of CBC every 6 hours for the next 24 hours. She will receive transfusions as required. Her current blood loss will be treated by using crystalloid fluid intravascular volume replacement with normal saline. (3) Diabetes mellitus type 2 in nonobese Is this a current diagnosis for this admission?: Yes Plan: Patient will be continued on her usual regiment once she has resumed a normal diabetic diet after her colonoscopy. Hemoglobin A1c will be obtained to evalua te the efficacy of her current therapy. (4) Hypothyroidism Qualifiers: Hypothyroidism type: unspecified Qualified Code(s): E03.9 - Hypothyroidism, unspecified Is this a current diagnosis for this admission?: Yes Plan: Patient will be continued on her current thyroid replacement. A thyroid profile will be obtained to evaluate the efficacy of her current therapy. (5) HTN (hypertension) Qualifiers: Hypertension type: essential hypertension Qualified Code(s): I10 - Essential (primary) hypertension Is this a current diagnosis for this admission?: Yes Plan: Patient will be continued on her routine antihypertensive therapy during her hospital course, changes will be made only as required. - Time Time Spent: 30 to 50 Minutes Critical Time spent with patient: Less than 15 minutes Medications reviewed and adjusted accordingly: Yes Anticipated discharge: Home - Inpatient Certification Based on my medical assessment, after consideration of the patient's comorbidities, presenting symptoms, or acuity I expect that the services needed warrant INPATIENT care.: Yes I certify that my determination is in accordance with my understanding of Medicare's requirements for reasonable and necessary INPATIENT services [42 CFR 412.3e].: Yes Medical Necessity: Need Close Monitoring Due to Risk of Patient Decompensation, Need for Surgery, Risk of Complication if Not Cared For in Hospital
[2018-07-14 07:06] LABS: HEMATOCRIT 23.8 % (36.0-47.0); HEMOGLOBIN 8.1 g/dL (12.0-15.5); MEAN CORPUSCULAR HEMOGLOBIN 29.6 pg (27.0-33.4); MEAN CORPUSCULAR HGB CONC 34.2 g/dL (32.0-36.0); MEAN CORPUSCULAR VOLUME 87 fl (80-97); RED BLOOD COUNT 2.75 10^6/uL (3.72-5.28); RED CELL DISTRIBUTION WIDTH 15.8 % (11.5-14.0); WHITE BLOOD COUNT 2.5 10^3/uL (4.0-10.5)
[2018-07-14 07:47] LABS: PLATELET COUNT 61 10^3/uL (150-450)
[2018-07-14] MEDS: DOCUSATE SODIUM 100 MG CAPSULE PO SCH ×2 (10:11→17:46)
[2018-07-14] MEDS: FAMOTIDINE 20 MG TABLET PO SCH ×2 (10:11→22:56)
[2018-07-14] MEDS: AMLODIPINE BESYLATE 5 MG TABLET PO SCH (10:14)
[2018-07-14 13:01] LABS: HEMATOCRIT 23.6 % (36.0-47.0); HEMOGLOBIN 8.2 g/dL (12.0-15.5); MEAN CORPUSCULAR HEMOGLOBIN 30.7 pg (27.0-33.4); MEAN CORPUSCULAR HGB CONC 34.6 g/dL (32.0-36.0); MEAN CORPUSCULAR VOLUME 89 fl (80-97); RED BLOOD COUNT 2.67 10^6/uL (3.72-5.28); RED CELL DISTRIBUTION WIDTH 15.9 % (11.5-14.0); WHITE BLOOD COUNT 2.6 10^3/uL (4.0-10.5)
[2018-07-14 13:58] LABS: PLATELET ESTIMATE 86 10^3/uL (150-450)
[2018-07-14] MEDS ORDERED: NORMAL SALINE 250 ML IV PRN ×2 (14:24)
--- NOTE | 2018-07-14 18:59 | Progress Note ---
Provider Note Provider Note: CELI SARMIENTO is a 83 year old female who presents the emergency room with a 2-day history of hematochezia. She was admitted for anemia and Lower GI bleeding. Plan for colonoscopy and serial monitoring of her Hgb. The patient denies having a bloody bowel movement since arrival to [facility]. Upon assessment this morning she is resting comfotably in bed. She complains of rectal pain. Denies N/V/abdominal pain or dizziness. Dr. Valdivia aware of the patient. States that her colonoscopy will likely not happen until Tuesday. Plan to keep patient at [facility] for anemia. If her anemia resolves and the patient remains asymptomatic, she may be a candidate for discharge within 48 hours. However, given her age, medical history, and the rapidly declining Hgb 9.6-->8.1 in 6 hrs, it is doubtful that the patient will go home this weekend. 1. Anemia: Secondary to lower GI blood loss. Patient has a hx of polyps and diverticula. Patient reports BRB in stool and sometimes passing clots. Plan to transfuse today for Hgb 8.1. Follow up with a post transfusion CBC. 2. Diabetes: Accuchecks ACHS. Humalog sliding scale insulin 3. HTN: home dose Norvasc 4. Hypothyroidism: home dose synthroid 5. Cirrhosis: home dose aldactone
[2018-07-14 19:47] LABS: HEMATOCRIT 28.2 % (36.0-47.0); HEMOGLOBIN 9.8 g/dL (12.0-15.5); MEAN CORPUSCULAR HEMOGLOBIN 30.3 pg (27.0-33.4); MEAN CORPUSCULAR HGB CONC 34.8 g/dL (32.0-36.0); MEAN CORPUSCULAR VOLUME 87 fl (80-97); RED BLOOD COUNT 3.23 10^6/uL (3.72-5.28); RED CELL DISTRIBUTION WIDTH 16.3 % (11.5-14.0)
[2018-07-14 19:49] LABS: PLATELET COUNT 60 10^3/uL (150-450)
[2018-07-14] MEDS ORDERED: CHLORPROMAZINE HCL INJ 25 MG/1 ML AMPULE IM PRN (22:35)
[2018-07-14] MEDS: DIAZEPAM 5 MG TABLET PO PRN (22:56)
[2018-07-15 00:31] LABS: HEMOGLOBIN 9.7 g/dL (12.0-15.5); MEAN CORPUSCULAR HEMOGLOBIN 30.2 pg (27.0-33.4); MEAN CORPUSCULAR HGB CONC 34.5 g/dL (32.0-36.0); MEAN CORPUSCULAR VOLUME 88 fl (80-97); RED BLOOD COUNT 3.19 10^6/uL (3.72-5.28); RED CELL DISTRIBUTION WIDTH 16.4 % (11.5-14.0)
[2018-07-15 00:49] LABS: PLATELET COUNT 53 10^3/uL (150-450)
[2018-07-15] MEDS: DIAZEPAM 5 MG TABLET PO PRN (04:20)
[2018-07-15] MEDS: LEVOTHYROXINE SODIUM 0.088 MG TABLET PO SCH (05:18)
[2018-07-15 08:37] LABS: ABSOLUTE LYMPHOCYTES (AUTO) 0.5 10^3/uL (0.5-4.7); ABSOLUTE MONOCYTES (AUTO) 0.2 10^3/uL (0.1-1.4); ABSOLUTE NEUT (AUTO) 2.3 10^3/uL (1.7-8.2); BASOPHILS % (AUTO) 0.5 % (0-2); EOSINOPHILS % (AUTO) 1.1 % (0-6); HEMATOCRIT 27.1 % (36.0-47.0); HEMOGLOBIN 9.3 g/dL (12.0-15.5); LYMPHOCYTES % (AUTO) 15.9 % (13-45); MEAN CORPUSCULAR HEMOGLOBIN 30.1 pg (27.0-33.4); MEAN CORPUSCULAR HGB CONC 34.4 g/dL (32.0-36.0); MEAN CORPUSCULAR VOLUME 87 fl (80-97); MONOCYTES % (AUTO) 5.5 % (3-13); RED CELL DISTRIBUTION WIDTH 15.9 % (11.5-14.0); TOTAL CELLS COUNTED % (AUTO) 100 %
[2018-07-15 09:01] LABS: PLATELET COUNT 58 10^3/uL (150-450)
[2018-07-15 09:03] LABS: BLOOD UREA NITROGEN 22 mg/dL (7-20); CALCIUM 8.6 mg/dL (8.4-10.2); GLUCOSE 110 mg/dL (75-110); POTASSIUM 4.6 mmol/L (3.6-5.0)
[2018-07-15 09:09] LABS: CARBON DIOXIDE 28 mmol/L (22-30); CHLORIDE 109 mmol/L (98-107); SODIUM 139.7 mmol/L (137-145)
[2018-07-15 09:14] LABS: ANION GAP 3 (5-19)
[2018-07-15 09:21] LABS: FREE T3 2.56 pg/mL (2.77-5.27); FREE T4 (FREE THYROXINE) 1.7 ng/dL (0.78-2.19)
[2018-07-15 09:34] LABS: THYROID STIMULATING HORMONE 3.85 uIU/mL (0.47-4.68)
[2018-07-15] MEDS: DOCUSATE SODIUM 100 MG CAPSULE PO SCH ×2 (09:46→17:13)
[2018-07-15] MEDS: SPIRONOLACTONE 25 MG TABLET PO SCH (09:46)
[2018-07-15] MEDS: AMLODIPINE BESYLATE 5 MG TABLET PO SCH (09:46)
[2018-07-15] MEDS: FAMOTIDINE 20 MG TABLET PO SCH ×2 (09:46→21:46)
--- NOTE | 2018-07-15 09:57 | PDOC CONSULTATION ---
Consultation Consult Date: 07/15/18 Consult reason:: rectal bleeding History of Present Illness Admission Date/PCP: 07/14/18 01:37 MAE ECHOLS MD History of Present Illness: CELI SARMIENTO is a 83 year old female with previous hx of lower gi bleeding approx 3 yrs ago had colonoscopy 3 yrs ago for bleeding had 3 colo's about 3-4 months apart according to pt had not had any further bleeding till recently brought in by for increased blood in stool recieved 1 unit of prbc in er last 24-36 hrs no further bleeding brown stool this am Past Medical History Cardiac Medical History: Reports: Hyperlipidema, Hypertension Denies: Atrial Fibrillation, Congestive Heart Failure, Coronary Artery Disease, DVT, Myocardial Infarction, Peripheral Vascular Disease, Pulmonary Emb olism, Heart Murmur Pulmonary Medical History: Reports: Asthma Denies: Bronchitis, Chronic Obstructive Pulmonary Disease (COPD), Pneumonia, Respiratory Failure, Sleep Apnea, Tuberculosis EENT Medical History: Reports: None Neurological Medical History: Reports: Other - mild memory loss Denies: Multiple Sclerosis, Seizures Endocrine Medical History: Reports: Diabetes Mellitus Type 2, Hypothyroidism Denies: Diabetes Mellitus Type 1, Hyperthyroidism Renal/ Medical History: Denies: Chronic Kidney Disease, End Stage Renal Disease, Nephrolithiasis Malignancy Medical History: Reports: None Denies: Lung Cancer GI Medical History: Reports: 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, Other - Past history of lower GI bleeding with colon polyps Denies: Crohn's Disease, Diverticulitis, Gastroesophageal Reflux Disease, Hepatitis, Hiatal Hernia, Ulcerative Colitis Musculoskeltal Medical History: Reports: Arthritis Denies: Fibromyalgia, Gout Skin Medical History: Denies: Eczema, Psoriasis Psychiatric Medical History: Reports: Depression, General Anxiety Disorder Denies: Alcohol Dependency, Dementia - some memory loss with age, Substance Abuse, Tobacco Dependency Traumatic Medical History: Reports: None Hematology: Denies: Anemia, Bleeding Tendencies Infectious Medical History: Reports: None Past Surgical History Past Surgical History: Reports: Orthopedic Surgery - Right hip fracture repair, Tubal Ligation, Other - Many previous endoscopies and colonoscopies for GI bleeding. Denies: Amputation, Appendectomy, Section, Cholecystectomy, Colostomy, Coronary Artery Bypass Graft, Gastric Bypass Surgery, Herniorrhaphy, Hysterectomy, Mastectomy, Pacemaker, Tonsillectomy Social History Lives with: Spouse/Significant other Smoking Status: Never Smoker Frequency of Alcohol Use: None Hx Recreational Drug Use: No Drugs: None Hx Prescription Drug Abuse: No - Advance Directive Resuscitation Status: Full Code Family History Family History: DM, Hypertension Parental Family History Reviewed: No Children Family History Reviewed: NA Sibling(s) Family History Reviewed.: NA Medication/Allergy Home Medications: Furosemide [Lasix 40 mg Tablet] 40 mg PO QAM 07/14/18 Hydrocodone/Acetaminophen [Carmine 5-325 mg Tablet] 1 tab PO Q8HP PRN 07/14/18 Ketorolac Tromethamine [Toradol 10 mg Tablet] 10 mg PO Q6HP PRN 07/14/18 Levothyroxine Sodium 88 mcg PO DAILY 07/14/18 Spironolactone [Aldactone] 50 mg PO DAILY 07/14/18 Allergies/Adverse Reactions: No Known Drug Allergies Allergy (Verified 11/24/17 18:58) Physical Exam Vital Signs: Temp Pulse Resp BP Pulse Ox 98.3 F 92 18 136/60 H 93 07/15/18 07:57 07/15/18 07:57 07/15/18 07:57 07/15/18 07:57 07/15/18 07:57 Intake & Output 07/14/18 07/15/18 07/16/18 06:59 06:59 06:59 Intake Total 1450 Balance 1450 Weight 71.2 kg 73.1 kg General appearance: PRESENT: no acute distress Respiratory exam: PRESENT: clear to auscultation roberto, unlabored Vascular exam: PRESENT: normal capillary refill GI/Abdominal exam: PRESENT: normal bowel sounds, soft Results Laboratory Results: 07/15/18 08:15 07/15/18 08:15 07/13/18 07/14/18 07/14/18 23:35 12:34 19:25 WBC 2.6 L 3.0 L RBC 2.67 L 3.23 L Hgb 8.2 L 9.8 L Hct 23.6 L 28.2 L MCV 89 87 MCH 30.7 30.3 MCHC 34.6 34.8 RDW 15.9 H 16.3 H Plt Count 60 L Seg Neutrophils % Lymphocytes % Monocytes % Eosinophils % Basophils % Absolute Neutrophils Absolute Lymphocytes Absolute Monocytes Absolute Eosinophils Absolute Basophils Sodium Potassium Chloride Carbon Dioxide Anion Gap BUN Creatinine Est GFR ( Amer) Est GFR (Non-Af Amer) Glucose Calcium Magnesium TSH Free T4 Free T3 pg/mL Blood Type A NEGATIVE Antibody Screen NEGATIVE 07/15/18 07/15/18 07/15/18 00:22 08:15 08:15 WBC 3.0 L 3.0 L RBC 3.19 L 3.10 L Hgb 9.7 L 9.3 L Hct 28.0 L 27.1 L MCV 88 87 MCH 30.2 30.1 MCHC 34.5 34.4 RDW 16.4 H 15.9 H Plt Count 53 L 58 L Seg Neutrophils % 77.0 Lymphocytes % 15.9 Monocytes % 5.5 Eosinophils % 1.1 Basophils % 0.5 Absolute Neutrophils 2.3 Absolute Lymphocytes 0.5 Absolute Monocytes 0.2 Absolute Eosinophils 0.0 Absolute Basophils 0.0 Sodium 139.7 Potassium 4.6 Chloride 109 H Carbon Dioxide 28 Anion Gap 3 L BUN 22 H Creatinine 0.89 Est GFR ( Amer) > 60 Est GFR (Non-Af Amer) > 60 Glucose 110 Calcium 8.6 Magnesium 1.9 TSH Free T4 Free T3 pg/mL Blood Type Antibody Screen 07/15/18 08:15 WBC RBC Hgb Hct MCV MCH MCHC RDW Plt Count Seg Neutrophils % Lymphocytes % Monocytes % Eosinophils % Basophils % Absolute Neutrophils Absolute Lymphocytes Absolute Monocytes Absolute Eosinophils Absolute Basophils Sodium Potassium Chloride Carbon Dioxide Anion Gap BUN Creatinine Est GFR ( Amer) Est GFR (Non-Af Amer) Glucose Calcium Magnesium TSH 3.85 Free T4 1.70 Free T3 pg/mL 2.56 L Blood Type Antibody Screen Assessment & Plan - Diagnosis (1) Hematochezia Is this a current diagnosis for this admission?: Yes - Inpatient Certification Medical Necessity: Need Close Monitoring Due to Risk of Patient Decompensation - Plan Summary Plan Summary: pt brought in for rectal bleed h/h relatively stable this am 9.7-9.8-9.3 this am brown stool dirrhea 1 small clot recommend would cont to observer h/h over weekend if h/h stable and no further blood per rectum could have outpt elective colo as a f/u if h/h drops or had further bleed, would consider colo on mon or tues. surgery will cont to follow.
[2018-07-15] MEDS ORDERED: (PENDING PHARMACY ID) (Spironolactone [Aldactone] 50 MG) PO SCH (10:00)
[2018-07-15] MEDS: SITAGLIPTIN PHOSPHATE 50 MG TABLET PO SCH (10:19)
[2018-07-15 20:38] LABS: HEMATOCRIT 25.2 % (36.0-47.0); HEMOGLOBIN 8.7 g/dL (12.0-15.5); MEAN CORPUSCULAR HEMOGLOBIN 29.9 pg (27.0-33.4); MEAN CORPUSCULAR HGB CONC 34.6 g/dL (32.0-36.0); MEAN CORPUSCULAR VOLUME 86 fl (80-97); RED BLOOD COUNT 2.92 10^6/uL (3.72-5.28); RED CELL DISTRIBUTION WIDTH 16.5 % (11.5-14.0)
[2018-07-15 20:59] LABS: PLATELET COUNT 60 10^3/uL (150-450)
--- NOTE | 2018-07-15 21:44 | PDOC PROGRESS REPORT ---
Subjective Progress Note for:: 07/15/18 Subjective:: CELI SARMIENTO is a 83 year old female who presents the emergency room with a 2-day history of hematochezia. She was admitted for anemia and Lower GI bleeding. The patient denies having a bloody bowel movement since arrival to [facility]. Upon assessment this morning she is resting comfortably in bed. Denies N/V/abdominal pain or dizziness. Reason For Visit: RECTAL BLEEDING Physical Exam Vital Signs: Temp Pulse Resp BP Pulse Ox 99.0 F 93 16 113/57 L 98 07/15/18 19:41 07/15/18 19:41 07/15/18 19:41 07/15/18 19:41 07/15/18 19:41 Intake & Output 07/14/18 07/15/18 07/16/18 06:59 06:59 06:59 Intake Total 1450 236 Balance 1450 236 Weight 71.2 kg 73.1 kg General appearance: PRESENT: no acute distress Head exam: PRESENT: atraumatic Eye exam: PRESENT: conjunctiva pale, PERRLA Mouth exam: PRESENT: moist Teeth exam: PRESENT: other - dentures Neck exam: PRESENT: full ROM Respiratory exam: PRESENT: clear to auscultation roberto, symmetrical, unlabored Cardiovascular exam: PRESENT: +S1, +S2 Pulses: PRESENT: normal radial pulses, normal dorsalis pedis pul GI/Abdominal exam: PRESENT: normal bowel sounds, soft. ABSENT: distended, tenderness Rectal exam: PRESENT: deferred Extremities exam: PRESENT: full ROM Musculoskeletal exam: PRESENT: full ROM. ABSENT: ambulatory - with assistance Neurological exam: PRESENT: alert, awake, oriented to person, oriented to place, oriented to time, oriented to situation Psychiatric exam: PRESENT: appropriate affect Skin exam: PRESENT: dry, intact, pallor Results Laboratory Results: 07/15/18 08:15 07/15/18 07/15/18 07/15/18 00:22 08:15 08:15 WBC 3.0 L 3.0 L RBC 3.19 L 3.10 L Hgb 9.7 L 9.3 L Hct 28.0 L 27.1 L MCV 88 87 MCH 30.2 30.1 MCHC 34.5 34.4 RDW 16.4 H 15.9 H Plt Count 53 L 58 L Seg Neutrophils % 77.0 Lymphocytes % 15.9 Monocytes % 5.5 Eosinophils % 1.1 Basophils % 0.5 Absolute Neutrophils 2.3 Absolute Lymphocytes 0.5 Absolute Monocytes 0.2 Absolute Eosinophils 0.0 Absolute Basophils 0.0 Sodium 139.7 Potassium 4.6 Chloride 109 H Carbon Dioxide 28 Anion Gap 3 L BUN 22 H Creatinine 0.89 Est GFR ( Amer) > 60 Est GFR (Non-Af Amer) > 60 Glucose 110 Calcium 8.6 Magnesium 1.9 TSH Free T4 Free T3 pg/mL 07/15/18 08:15 WBC RBC Hgb Hct MCV MCH MCHC RDW Plt Count Seg Neutrophils % Lymphocytes % Monocytes % Eosinophils % Basophils % Absolute Neutrophils Absolute Lymphocytes Absolute Monocytes Absolute Eosinophils Absolute Basophils Sodium Potassium Chloride Carbon Dioxide Anion Gap BUN Creatinine Est GFR ( Amer) Est GFR (Non-Af Amer) Glucose Calcium Magnesium TSH 3.85 Free T4 1.70 Free T3 pg/mL 2.56 L Status: Imported from PACS Assessment & Plan - Diagnosis (1) Acute blood loss anemia Is this a current diagnosis for this admission?: Yes Plan: Stabilized. Secondary to lower GI blood loss. Patient has a hx of polyps and diverticula. Patient reports BRB in stool and sometimes passing clots. No hematochezia since arrival to [facility] If remains hgb stable, consider discharge home and f/u with application packaging consultant (2) Hematochezia Is this a current diagnosis for this admission?: Yes (3) Diabetes mellitus type 2 in nonobese Is this a current diagnosis for this admission?: Yes Plan: accuchecks ACHS humalog insulin sliding scale (4) History of fall Is this a current diagnosis for this admission?: Yes Plan: reports the patient recently fell at home Since her fall, reports the patient has not been able to ambulate very well - even with the use of a walker He expresses safety concerns for the patient if she were to return home Case management aware. They are working to find placement - Inpatient Certification Based on my medical assessment, after consideration of the patient's comorbidities, presenting symptoms, or acuity I expect that the services needed warrant INPATIENT care.: Yes I certify that my determination is in accordance with my understanding of Medicare's requirements for reasonable and necessary INPATIENT services [42 CFR 412.3e].: Yes - Plan Summary Plan Summary: Serial Hgb. If no bloody bowel movements, plan to discharge home.
[2018-07-16] MEDS: LEVOTHYROXINE SODIUM 0.088 MG TABLET PO SCH (05:52)
[2018-07-16 06:25] LABS: ABSOLUTE LYMPHOCYTES (AUTO) 0.5 10^3/uL (0.5-4.7); ABSOLUTE MONOCYTES (AUTO) 0.2 10^3/uL (0.1-1.4); ABSOLUTE NEUT (AUTO) 1.9 10^3/uL (1.7-8.2); BASOPHILS % (AUTO) 0.4 % (0-2); EOSINOPHILS % (AUTO) 1.6 % (0-6); HEMATOCRIT 24.4 % (36.0-47.0); HEMOGLOBIN 8.4 g/dL (12.0-15.5); MEAN CORPUSCULAR HEMOGLOBIN 30.2 pg (27.0-33.4); MEAN CORPUSCULAR HGB CONC 34.5 g/dL (32.0-36.0); MEAN CORPUSCULAR VOLUME 88 fl (80-97); MONOCYTES % (AUTO) 6.3 % (3-13); RED BLOOD COUNT 2.79 10^6/uL (3.72-5.28); RED CELL DISTRIBUTION WIDTH 16.1 % (11.5-14.0); SEGMENTED NEUTROPHILS % (AUTO) 72.7 % (42-78); TOTAL CELLS COUNTED % (AUTO) 100 %; WHITE BLOOD COUNT 2.6 10^3/uL (4.0-10.5)
[2018-07-16 06:56] LABS: PLATELET COUNT 57 10^3/uL (150-450)
[2018-07-16 07:00] LABS: BLOOD UREA NITROGEN 18 mg/dL (7-20); CALCIUM 8.2 mg/dL (8.4-10.2); CHLORIDE 110 mmol/L (98-107); GLUCOSE 93 mg/dL (75-110); POTASSIUM 4.2 mmol/L (3.6-5.0)
[2018-07-16 07:49] LABS: CARBON DIOXIDE 26 mmol/L (22-30)
[2018-07-16 07:50] LABS: ANION GAP 3 (5-19)
[2018-07-16] MEDS: SPIRONOLACTONE 25 MG TABLET PO SCH (10:11)
[2018-07-16] MEDS: SITAGLIPTIN PHOSPHATE 50 MG TABLET PO SCH (10:11)
[2018-07-16] MEDS: FAMOTIDINE 20 MG TABLET PO SCH ×2 (10:11→21:39)
[2018-07-16] MEDS: AMLODIPINE BESYLATE 5 MG TABLET PO SCH (10:16)
[2018-07-16] MEDS: DOCUSATE SODIUM 100 MG CAPSULE PO SCH ×2 (10:19→17:29)
--- NOTE | 2018-07-16 10:32 | PDOC PROGRESS REPORT ---
Subjective Progress Note for:: 07/16/18 Reason For Visit: RECTAL BLEEDING Physical Exam Vital Signs: Temp Pulse Resp BP Pulse Ox 98.7 F 89 20 130/49 H 96 07/16/18 08:08 07/16/18 08:08 07/16/18 08:08 07/16/18 08:08 07/16/18 08:08 Intake & Output 07/15/18 07/16/18 07/17/18 06:59 06:59 06:59 Intake Total 1450 710 Balance 1450 710 Weight 73.1 kg 75.4 kg GI/Abdominal exam: PRESENT: soft - abd soft non tender Rectal exam: PRESENT: other - small right sided labial excoriation, oozing blood. controlled with silver nitrate. Results Laboratory Results: 07/16/18 05:30 07/16/18 05:30 07/15/18 07/16/18 07/16/18 20:10 05:30 05:30 WBC 3.0 L 2.6 L RBC 2.92 L 2.79 L Hgb 8.7 L 8.4 L Hct 25.2 L 24.4 L MCV 86 88 MCH 29.9 30.2 MCHC 34.6 34.5 RDW 16.5 H 16.1 H Plt Count 60 L 57 L Seg Neutrophils % 72.7 Lymphocytes % 19.0 Monocytes % 6.3 Eosinophils % 1.6 Basophils % 0.4 Absolute Neutrophils 1.9 Absolute Lymphocytes 0.5 Absolute Monocytes 0.2 Absolute Eosinophils 0.0 Absolute Basophils 0.0 Sodium 139.0 Potassium 4.2 Chloride 110 H Carbon Dioxide 26 Anion Gap 3 L BUN 18 Creatinine 0.89 Est GFR ( Amer) > 60 Est GFR (Non-Af Amer) > 60 Glucose 93 Calcium 8.2 L Magnesium 1.8 Assessment & Plan - Diagnosis (1) Hematochezia Is this a current diagnosis for this admission?: Yes - Plan Summary Plan Summary: pt seen and examined this am passing brown stool this am small labial excoriation that is bleeding and controlled with silver nitrate current plt count markedly decreased. suspect cause of bleeding consider plt tx if hb cont to decrease no indication for repeat colo at this time.
[2018-07-16] MEDS ORDERED: OPIUM/BELLADONNA ALKALOIDS 30-16.2 MG SUPP.RECT PR PRN (12:50)
--- NOTE | 2018-07-16 16:51 | PDOC PROGRESS REPORT ---
Subjective Progress Note for:: 07/16/18 Subjective:: CELI SARMIENTO is a 83 year old female who presents the emergency room with a 2-day history of hematochezia. She was admitted for anemia and Lower GI bleeding. The patient denies having a bloody bowel movement since arrival to [facility]. Upon assessment this morning she is resting comfortably in bed. Denies N/V/abdominal pain or dizziness. No rectal bleeding or hemorrhoids noted. Small bleeding skin tear noted to labia, no longer actively bleeding. Patient will remain at [facility] for placement to SNF. Case management aware. Reason For Visit: RECTAL BLEEDING Physical Exam Vital Signs: Temp Pulse Resp BP Pulse Ox 99.4 F 90 20 103/43 L 96 07/16/18 15:17 07/16/18 15:17 07/16/18 15:17 07/16/18 15:17 07/16/18 15:17 Intake & Output 07/15/18 07/16/18 07/17/18 06:59 06:59 06:59 Intake Total 1450 710 Balance 1450 710 Weight 73.1 kg 75.4 kg Results Laboratory Results: 07/16/18 05:30 07/16/18 05:30 07/15/18 07/16/18 07/16/18 20:10 05:30 05:30 WBC 3.0 L 2.6 L RBC 2.92 L 2.79 L Hgb 8.7 L 8.4 L Hct 25.2 L 24.4 L MCV 86 88 MCH 29.9 30.2 MCHC 34.6 34.5 RDW 16.5 H 16.1 H Plt Count 60 L 57 L Seg Neutrophils % 72.7 Lymphocytes % 19.0 Monocytes % 6.3 Eosinophils % 1.6 Basophils % 0.4 Absolute Neutrophils 1.9 Absolute Lymphocytes 0.5 Absolute Monocytes 0.2 Absolute Eosinophils 0.0 Absolute Basophils 0.0 Sodium 139.0 Potassium 4.2 Chloride 110 H Carbon Dioxide 26 Anion Gap 3 L BUN 18 Creatinine 0.89 Est GFR ( Amer) > 60 Est GFR (Non-Af Amer) > 60 Glucose 93 Calcium 8.2 L Magnesium 1.8 Status: Imported from PACS Assessment & Plan - Diagnosis (1) Acute blood loss anemia Is this a current diagnosis for this admission?: Yes Plan: Stabilized. Hgb 8.1-->9.8-->8.4 Secondary to lower GI blood loss. Patient has a hx of polyps and diverticula. Patient reports BRB in stool and sometimes passing clots. No hematochezia since arrival to [facility] If remains hgb stable, patient will not require colonoscopy. Discussed with surgery, they are in agreement. (2) Hematochezia Is this a current diagnosis for this admission?: Yes Plan: see above (3) Diabetes mellitus type 2 in nonobese Is this a current diagnosis for this admission?: Yes Plan: accdivina GIBBS humalog insulin sliding scale (4) History of fall Is this a current diagnosis for this admission?: Yes Plan: reports the patient recently fell at home Since her fall, reports the patient has not been able to ambulate very well - even with the use of a walker He expresses safety concerns for the patient if she were to return home Case management aware. Appreciate their assistance in finding placement - Time Time Spent with patient: 15-24 minutes Medications reviewed and adjusted accordingly: Yes Anticipated discharge: SNF - Inpatient Certification Based on my medical assessment, after consideration of the patient's comorbidities, presenting symptoms, or acuity I expect that the services needed warrant INPATIENT care.: Yes I certify that my determination is in accordance with my understanding of Medicare's requirements for reasonable and necessary INPATIENT services [42 CFR 412.3e].: Yes Medical Necessity: Risk of Complication if Not Cared For in Hospital - Plan Summary Plan Summary: Monitor daily CBC. Awaiting placement at acute rehab and/or SNF
[2018-07-17 05:00] LABS: ABSOLUTE LYMPHOCYTES (AUTO) 0.7 10^3/uL (0.5-4.7); ABSOLUTE MONOCYTES (AUTO) 0.2 10^3/uL (0.1-1.4); ABSOLUTE NEUT (AUTO) 2.6 10^3/uL (1.7-8.2); BASOPHILS % (AUTO) 0.3 % (0-2); EOSINOPHILS % (AUTO) 0.9 % (0-6); HEMOGLOBIN 9.5 g/dL (12.0-15.5); LYMPHOCYTES % (AUTO) 19.1 % (13-45); MEAN CORPUSCULAR HEMOGLOBIN 30.8 pg (27.0-33.4); MEAN CORPUSCULAR HGB CONC 35.1 g/dL (32.0-36.0); MEAN CORPUSCULAR VOLUME 88 fl (80-97); MONOCYTES % (AUTO) 5.2 % (3-13); RED BLOOD COUNT 3.08 10^6/uL (3.72-5.28); RED CELL DISTRIBUTION WIDTH 16.5 % (11.5-14.0); SEGMENTED NEUTROPHILS % (AUTO) 74.5 % (42-78); TOTAL CELLS COUNTED % (AUTO) 100 %; WHITE BLOOD COUNT 3.5 10^3/uL (4.0-10.5)
[2018-07-17 05:21] LABS: BLOOD UREA NITROGEN 17 mg/dL (7-20); CALCIUM 8.4 mg/dL (8.4-10.2); GLUCOSE 112 mg/dL (75-110); POTASSIUM 4.3 mmol/L (3.6-5.0)
[2018-07-17 05:26] LABS: CARBON DIOXIDE 26 mmol/L (22-30); CHLORIDE 110 mmol/L (98-107); SODIUM 139.4 mmol/L (137-145)
[2018-07-17 05:35] LABS: ANION GAP 3 (5-19)
[2018-07-17] MEDS: LEVOTHYROXINE SODIUM 0.088 MG TABLET PO SCH (05:41)
[2018-07-17 05:45] LABS: PLATELET COUNT 58 10^3/uL (150-450)
[2018-07-17] MEDS: SITAGLIPTIN PHOSPHATE 50 MG TABLET PO SCH (09:12)
[2018-07-17] MEDS: SPIRONOLACTONE 25 MG TABLET PO SCH (09:12)
[2018-07-17] MEDS: DOCUSATE SODIUM 100 MG CAPSULE PO SCH (09:13)
[2018-07-17] MEDS: AMLODIPINE BESYLATE 5 MG TABLET PO SCH (09:13)
[2018-07-17] MEDS: FAMOTIDINE 20 MG TABLET PO SCH (09:13)
--- NOTE | 2018-07-17 13:27 | PDOC TRANSFER SUMMARY ---
General Admission Date/PCP: 07/14/18 01:37 MAE ECHOLS MD Admission Date: 07/14/18 Transfer Date: 07/17/18 Resuscitation Status: Full Code - Transfer Diagnosis (1) Acute blood loss anemia Is this a current diagnosis for this admission?: Yes (2) Hematochezia Is this a current diagnosis for this admission?: Yes (3) Diabetes mellitus type 2 in nonobese Is this a current diagnosis for this admission?: Yes (4) History of fall Is this a current diagnosis for this admission?: Yes - Transfer Medications Home Medications: Furosemide [Lasix 40 mg Tablet] 40 mg PO QAM 07/14/18 Ketorolac Tromethamine [Toradol 10 mg Tablet] 10 mg PO Q6HP PRN 07/14/18 Levothyroxine Sodium 88 mcg PO DAILY 07/14/18 Spironolactone [Aldactone] 50 mg PO DAILY 07/14/18 Transfer Medications: Current Medications Acetaminophen (Tylenol 325 Mg Tablet) 650 mg PO Q4HP PRN PRN Reason: For headache, pain or fever Stop: 08/13/18 01:55 Al Hydrox/Mg Hydrox/Simethicone (Maalox Plus Susp 30 Udcup) 30 ml PO Q6HP PRN PRN Reason: HEARTBURN Stop: 08/13/18 01:37 Amlodipine Besylate (Norvasc 5 Mg Tablet) 5 mg PO DAILY REBECCA Stop: 08/13/18 09:59 Last Admin: 07/17/18 09:13 Dose: 5 mg Documented by: Belladonna Alkaloids/Opium (B & O 16.2-30 Mg Supp) 1 each TX Q12HP PRN PRN Reason: FOR PAIN Stop: 07/23/18 12:49 Chlorpromazine HCl (Thorazine Inj 25 Mg/1 Ml Ampule) 25 mg IM Q8HP PRN PRN Reason: AGITATION/ANXIETY Stop: 08/13/18 22:34 Dextrose (Dextrose Inj 50% Syringe (25 Gm/50 Ml)) 12.5 gm IV PRN PRN; Protocol PRN Reason: FOR BG 50-69 IN ALERT PATIENT Stop: 08/13/18 01:55 Dextrose (Dextrose Inj 50% Syringe (25 Gm/50 Ml)) 25 gm IV PRN PRN; Protocol PRN Reason: PER PROTOCOL Stop: 08/13/18 01:55 Diazepam (Valium 5 Mg Tablet) 5 mg PO Q4HP PRN PRN Reason: ANXIETY Stop: 07/21/18 22:33 Last Admin: 07/15/18 04:20 Dose: 5 mg Documented by: Docusate Sodium (Colace 100 Mg Capsule) 100 mg PO BID [facility] Stop: 08/13/18 09:59 Last Admin: 07/17/18 09:13 Dose: Not Given Documented by: Famotidine (Pepcid 20 Mg Tablet) 20 mg PO Q12 [facility] Stop: 08/13/18 09:59 Last Admin: 07/17/18 09:13 Dose: 20 mg Documented by: Glucagon (Glucagen Inj 1 Mg Vial) 1 mg IM PRN PRN; Protocol PRN Reason: Evaluate for BG < 70 Stop: 08/13/18 01:55 Glucose (Glutose 40% Gel 15 Gm Tube) 15 gm PO PRN PRN; Protocol PRN Reason: FOR BG 50-69 IN ALERT PATIENT Stop: 08/13/18 01:55 Glucose (Glutose 40% Gel 15 Gm Tube) 30 gm PO PRN PRN; Protocol PRN Reason: FOR BG < 50 IN ALERT PATIENT Stop: 08/13/18 01:55 Insulin Human Regular (Humulin R (Pyxis) Insulin 100 Unit/Ml 3ml) 0 - 12 unit SUBCUT ACHSP PRN; Protocol PRN Reason: PER PROTOCOL Stop: 08/13/18 01:55 Last Admin: 07/16/18 21:39 Dose: 2 unit Documented by: Levothyroxine Sodium (Synthroid 0.088 Mg Tablet) 0.088 mg PO Q6AM [facility] Stop: 08/13/18 05:59 Last Admin: 07/17/18 05:41 Dose: 0.088 mg Documented by: Magnesium Hydroxide (Milk Of Magnesia 30 Ml Udcup) 30 ml PO HSP PRN PRN Reason: FOR CONSTIPATION Stop: 08/13/18 01:37 Ondansetron HCl (Zofran Inj/Pf 4 Mg/2 Ml Sdv) 4 mg IV Q4HP PRN PRN Reason: FOR NAUSEA/VOMITING Stop: 08/13/18 01:37 Ondansetron HCl (Zofran Odt 4 Mg Tablet) 4 mg PO Q4HP PRN PRN Reason: FOR NAUSEA/VOMITING Stop: 08/13/18 01:37 Sitagliptin Phosphate (Januvia 50 Mg Tablet) 50 mg PO DAILY [facility] Stop: 08/14/18 09:59 Last Admin: 07/17/18 09:12 Dose: 50 mg Documented by: Sodium Chloride (Saline Flush 2.5 Ml Monoject Prefil Syrin) 2.5 ml IV Q8 [facility] Stop: 08/13/18 05:59 Last Admin: 07/17/18 05:41 Dose: 2.5 ml Documented by: Spironolactone (Aldactone 25 Mg Tablet) 50 mg PO DAILY [facility] Stop: 08/14/18 09:59 Last Admin: 07/17/18 09:12 Dose: 50 mg Documented by: - Allergies Allergies/Adverse Reactions: No Known Drug Allergies Allergy (Verified 11/24/17 18:58) - Diet/Activity Discharge Diet: As Tolerated Hospital Course Hospital Course: CELI SARMIENTO is a 83 year old female with a PMH of liver cirrhosis, HTN, HLD, DM, dementia, and GI bleeding presented to the emergency room with a 2-day history of hematochezia. She reports passing BRB in her stool as well as large clots from the rectum. She was admitted to the hospitalist service for anemia and Lower GI bleeding. The patient is followed by a pharmacy student in [place] and has had multiple colonoscopies in the past. The only findings were polyps and scattered diverticula. The patient's Hgb dropped to 8.1, she received 1 unit PRBC. Her Hgb has stabilized at 9.5. Throughout her hospital ization, the patient did not have a bloody bowel movement, Nor did she pass blood clots from her rectum. Surgery was consulted about the possibility of performing a colonoscopy, but given her improved clinical picture, surgeon and hospitalist agree that the procedure can be done on an outpatient basis. The patient's reports that the patient recently fell at home and injured her R shoulder. Since her fall, the reports the patient has not been able to ambulate very well - even with the use of a walker. He expresses concern for the patient's safety if she were to return home because he is the only available caregiver. Case management was made aware. Both the and patient agree that the patient could benefit from placement in a SNF. Physical Exam Vital Signs: Temp Pulse Resp BP Pulse Ox 98.2 F 82 18 113/52 L 99 07/17/18 11:27 07/17/18 11:27 07/17/18 11:27 07/17/18 11:27 07/17/18 11:27 Intake & Output 07/16/18 07/17/18 07/18/18 06:59 06:59 06:59 Intake Total 710 670 Balance 710 670 Weight 75.4 kg 74.8 kg Results Laboratory Results: 07/17/18 04:18 07/17/18 04:18 07/17/18 07/17/18 04:18 04:18 WBC 3.5 L RBC 3.08 L Hgb 9.5 L Hct 27.0 L MCV 88 MCH 30.8 MCHC 35.1 RDW 16.5 H Plt Count 58 L Seg Neutrophils % 74.5 Lymphocytes % 19.1 Monocytes % 5.2 Eosinophils % 0.9 Basophils % 0.3 Absolute Neutrophils 2.6 Absolute Lymphocytes 0.7 Absolute Monocytes 0.2 Absolute Eosinophils 0.0 Absolute Basophils 0.0 Sodium 139.4 Potassium 4.3 Chloride 110 H Carbon Dioxide 26 Anion Gap 3 L BUN 17 Creatinine 0.97 Est GFR ( Amer) > 60 Est GFR (Non-Af Amer) 55 L Glucose 112 H Calcium 8.4 Magnesium 1.8 Status: Imported from PACS
[2018-07-17 16:42] VITALS: BP 117/40
== END 2018-07-17 18:00 | DRG 812 ==
LOC: ER 23:13 → EH 07-14 01:37 → 4N 07-14 17:46
PROVIDERS: ADMIT Emergency Medicine; ATTEND Emergency Medicine
PROC: 30233N1 Transfusion of Nonautologous Red Blood Cells into Peripheral Vein, Percutaneous Approach (ICD-10-PCS; principal; 2018-07-14)
DX: D62 Acute posthemorrhagic anemia (principal); K92.1 Melena; E78.5 Hyperlipidemia, unspecified; I10 Essential (primary) hypertension; E11.9 Type 2 diabetes mellitus without complications; E03.9 Hypothyroidism, unspecified; K74.60 Unspecified cirrhosis of liver; M19.90 Unspecified osteoarthritis, unspecified site; F03.90 Unspecified dementia, unspecified severity, without behavioral disturbance, psychotic disturbance, mood disturbance, and anxiety; F32.9 Major depressive disorder, single episode, unspecified; F41.1 Generalized anxiety disorder; Z98.51 Tubal ligation status; Z79.899 Other long term (current) drug therapy
CPT/HCPCS: 36415; 36430; 80048; 82962; 83735; 84439; 84443; 84481; 85025; 85027; 85610; 85730; 86850; 86900; 86901; 86920; 99284; J1815; J3490; J7030; P9016